=== PATIENT | male | born 1950 | race Caucasian/White ===

== ENCOUNTER → 2017-06-28 | Outpatient (CLI) | payer MEDICARE, OTHER ==
[~2017-06-28] MED LIST: ASPI81TA83; IBUP800T; PRAV10TA4; PRIL20CA; PROS5TAB; TERA10CA; TERA5CAP3; TRAM50TA2
[2017-06-28 09:51] LABS: BASO % 0.4 % (0.0-1.0); EOS # 0.2 10^3/uL (0.0-0.50); EOS % 2.7 % (0.0-3.0); IMMATURE GRANULOCYTE % 0.4 % (0-0); LYMPH # 1.5 10^3/uL (1.5-4.5); LYMPH % 19.4 % (24.0-44.0); MEAN CORPUSCULAR HEMOGLOBIN 30.6 pg (27.0-33.0); MEAN CORPUSCULAR VOLUME 92.7 fl (80.0-96.0); MONO # 0.6 10^3/uL (0.0-0.8); MONO % 7.4 % (0.0-5.0); NEUTROPHILS # 5.2 10^3/uL (1.8-7.7); NEUTROPHILS % 69.7 % (36.0-66.0); PLATELET COUNT, AUTOMATED 221 10^3/uL (150-450); RED CELL DISTRIBUTION WIDTH 13.2 % (11.5-14.5); WHITE BLOOD COUNT 7.5 10^3/uL (4.0-10.0)
[2017-06-28 10:26] LABS: ALBUMIN 3.2 GM/DL (3.2-5.2); ALBUMIN/GLOBULIN RATIO 0.86 (1.00-1.93); ALKALINE PHOSPHATASE 71 U/L (45-117); ALT/SGPT 20 U/L (12-78); ANION GAP 5 MEQ/L (8-16); AST/SGOT 11 U/L (7-37); BILIRUBIN,TOTAL 0.8 MG/DL (0.2-1.0); BLOOD UREA NITROGEN 16 MG/DL (7-18); CALCIUM LEVEL 8.5 MG/DL (8.8-10.2); CARBON DIOXIDE LEVEL 30 MEQ/L (21-32); CHLORIDE LEVEL 106 MEQ/L (98-107); CHOLESTEROL LEVEL 172 MG/DL (<200); CREATININE FOR GFR 1.01 MG/DL (0.70-1.30); FREE T4 0.99 NG/DL (0.76-1.46); GLOMERULAR FILTRATION RATE > 60.0 (>49); GLUCOSE, FASTING 87 MG/DL (80-110); POTASSIUM SERUM 4.9 MEQ/L (3.5-5.1); SODIUM LEVEL 141 MEQ/L (136-145); TOTAL PROTEIN 6.9 GM/DL (6.4-8.2); TRIGLYCERIDES LEVEL 42 MG/DL (<150)
[2017-06-30 10:43] LABS: VITAMIN B12 LEVEL 484 PG/ML (247-911)
[2017-06-30 10:44] LABS: FOLATE 7.3 NG/ML (>5.4)
== END ==
LOC: M LAB 08:54
PROVIDERS: ATTEND Nurse Practitioner Adult Health
DX: D36.11 Benign neoplasm of peripheral nerves and autonomic nervous system of face, head, and neck (principal); J44.1 Chronic obstructive pulmonary disease with (acute) exacerbation; Z79.899 Other long term (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; E53.8 Deficiency of other specified B group vitamins; N40.0 Benign prostatic hyperplasia without lower urinary tract symptoms; E78.00 Pure hypercholesterolemia, unspecified; T78.49XD Other allergy, subsequent encounter; E55.9 Vitamin D deficiency, unspecified

== ENCOUNTER 2018-04-19 11:03 | Emergency (ER) | payer OTHER, MEDICARE ==
[2018-04-19 11:56] LABS: BASO % 0.3 % (0.0-1.0); EOS # 0.1 10^3/uL (0.0-0.50); EOS % 1.8 % (0.0-3.0); HEMATOCRIT 43.5 % (42.0-52.0); HEMOGLOBIN 14.6 g/dl (13.5-17.5); IMMATURE GRANULOCYTE % 0.3 % (0-3.0); LYMPH # 1.4 10^3/uL (1.5-4.5); LYMPH % 20.5 % (24.0-44.0); MEAN CORPUSCULAR HGB CONC 33.6 g/dl (32.0-36.5); MEAN CORPUSCULAR VOLUME 92.4 fl (80.0-96.0); MONO # 0.6 10^3/uL (0.0-0.8); MONO % 8.8 % (0.0-5.0); NEUTROPHILS # 4.5 10^3/uL (1.8-7.7); NEUTROPHILS % 68.3 % (36.0-66.0); PLATELET COUNT, AUTOMATED 214 10^3/uL (150-450); RED BLOOD COUNT 4.71 10^6/uL (4.30-6.10); WHITE BLOOD COUNT 6.6 10^3/uL (4.0-10.0)
[2018-04-19] MEDS: NS 1,000 ML IV (12:00)
[2018-04-19] MEDS: PANTOPRAZOLE 40MG INJ (PROTONIX) (C9113) IV (12:00)
[2018-04-19 12:09] LABS: INR 1.17; PROTHROMBIN TIME 15.1 SECONDS (12.1-14.4)
[2018-04-19 12:25] LABS: ALBUMIN 3.3 GM/DL (3.2-5.2); ALBUMIN/GLOBULIN RATIO 0.97 (1.00-1.93); ALKALINE PHOSPHATASE 72 U/L (45-117); ALT/SGPT 23 U/L (12-78); ANION GAP 8 MEQ/L (8-16); AST/SGOT 17 U/L (7-37); BILIRUBIN,DIRECT 0.3 MG/DL (0.0-0.2); BILIRUBIN,TOTAL 0.9 MG/DL (0.2-1.0); BLOOD UREA NITROGEN 17 MG/DL (7-18); CARBON DIOXIDE LEVEL 28 MEQ/L (21-32); CHLORIDE LEVEL 107 MEQ/L (98-107); CPK CREATINE PHOSPHOKINASE 84 U/L (39-308); CREATININE FOR GFR 1.12 MG/DL (0.70-1.30); GLOMERULAR FILTRATION RATE > 60.0 (>49); GLUCOSE, FASTING 111 MG/DL (70-100); MB/CK RELATIVE INDEX 2.62 (< OR =4); POTASSIUM SERUM 4.1 MEQ/L (3.5-5.1); SODIUM LEVEL 143 MEQ/L (136-145); TOTAL PROTEIN 6.7 GM/DL (6.4-8.2); TROPONIN I < 0.02 NG/ML (< 0.10)
== END 2018-04-19 12:47 | disposition home or self-care (01) ==
LOC: M ED 11:03
DX: K92.2 Gastrointestinal hemorrhage, unspecified (principal); K92.1 Melena; R00.1 Bradycardia, unspecified; I10 Essential (primary) hypertension; E78.9 Disorder of lipoprotein metabolism, unspecified; N40.0 Benign prostatic hyperplasia without lower urinary tract symptoms; Q85.09 Other neurofibromatosis; Z79.899 Other long term (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; Z79.82 Long term (current) use of aspirin
CPT/HCPCS: C9113

== ENCOUNTER 2018-06-10 10:12 | Day surgery (SDC) | payer OTHER ==
[2018-06-10] MEDS: NS 1,000 ML IV (06:00)
[~2018-06-10 10:12] MED LIST changes: -ASPI81TA83; -IBUP800T; -PRAV10TA4; -PRIL20CA; +PROPOFOL 200 MG/20 ML VIAL As Ordered; -PROS5TAB; -TERA10CA; -TERA5CAP3; -TRAM50TA2
== END 2018-06-10 13:15 | disposition home or self-care (01) ==
LOC: M OPP 10:12
DX: Z86.010 Personal history of colon polyps (principal); K64.1 Second degree hemorrhoids; K57.30 Diverticulosis of large intestine without perforation or abscess without bleeding; D12.5 Benign neoplasm of sigmoid colon; D12.3 Benign neoplasm of transverse colon; D12.2 Benign neoplasm of ascending colon
CPT/HCPCS: 45380

== ENCOUNTER → 2020-08-02 | Outpatient (CLI) | payer OTHER ==
[~2020-08-02] MED LIST changes: +ASPI81TA83; +CYAN1000VL IM; +FLON1SPR; +IBUP800T; +PRAV10TA3 PO; +PRAV10TA4; +PRESCAP6 PO; +PRIL20CA; -PROPOFOL 200 MG/20 ML VIAL As Ordered; +PROS5TAB; +SYMB16INH INH; +TERA10CA; +TERA10CA3 PO; +TERA5CAP3; +TRAM50TA2; +VITA100067 PO
== END ==
LOC: M LABSMTC 10:42
PROVIDERS: ATTEND Pediatrics
DX: Z20.822 Contact with and (suspected) exposure to COVID-19 (principal)

== ENCOUNTER 2020-08-26 06:12 | Emergency (ER) | payer MEDICARE, OTHER ==
[~2020-08-26] VITALS: Ht 165.1 cm; Wt 92.7 kg
--- OUTSIDE RECORDS SUMMARY | 2020-08-26 06:18 | CCD ---
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 Role Phone Juani Schwartz ANP-BC Unavailable Unavailable EfrenJuanin ANP-BC Unavailable Unavailable Juani Schwartzn ANP-BC Unavailable Unavailable Juani Schwartzn ANP-BC Unavailable Unavailable EfrenJuani Alexia ANP-BC Unavailable Unavailable EfrenJuani Alexia ANP-BC Unavailable Unavailable Juani Schwartz Alexia ANP-BC Unavailable Unavailable Juani Schwartz Alexia ANP-BC Unavailable Unavailable Juani Schwartzn ANP-BC Unavailable Unavailable Juani Schwartz Alexia ANP-BC Unavailable Unavailable Juani Schwartz Alexia ANP-BC Unavailable Unavailable Juani Schwartzn ANP-BC Unavailable Unavailable Juani Schwartz Alexai ANP-BC Unavailable Unavailable Juani Schwartzn ANP-BC Unavailable Unavailable EfrenJuani Alexia ANP-BC Unavailable Unavailable Juani Schwartz Alexia ANP-BC Unavailable Unavailable EfrenJuani Alexia ANP-BC Unavailable Unavailable Juani Schwartz Alexia ANP-BC Unavailable Unavailable Juani Schwartz Alexia ANP-BC Unavailable Unavailable Juani Schwartz Alexia ANP-BC Unavailable Unavailable Juani Schwartz Alexia ANP-BC Unavailable Unavailable EfrenJuani Alexia ANP-BC Unavailable Unavailable EfrenJuani Alexia ANP-BC Unavailable Unavailable EfrenJuani Alexia ANP-BC Unavailable Unavailable EfrenJuani Alexia ANP-BC Unavailable Unavailable EfrenJuani Alexia ANP-BC Unavailable Unavailable Efren, Juani Alexia ANP-BC Unavailable Unavailable Efren, Juani Alexia ANP-BC Unavailable Unavailable Efren, Juani Alexia ANP-BC Unavailable Unavailable Efren, Juani Alexia ANP-BC Unavailable Unavailable Efren, Juani Alexia ANP-BC Unavailable Unavailable Efren, Juani Alexia ANP-BC Unavailable Unavailable Efren, Juani Alexia ANP-BC Unavailable Unavailable Efren, Juani Alexia ANP-BC Unavailable Unavailable Efren, Juani Alexia ANP-BC Unavailable Unavailable Efren, Juani Alexia ANP-BC Unavailable Unavailable Efren, Juani Alexia ANP-BC Unavailable Unavailable Efren, Juani Alexia ANP-BC Unavailable Unavailable Efren, Juani Alexia ANP-BC Unavailable Unavailable Efren, Juani Alexia ANP-BC Unavailable Unavailable Efren, Juani Alexia ANP-BC Unavailable Unavailable Efren, Juani Alexia ANP-BC Unavailable Unavailable Efren, Juani Alexia ANP-BC Unavailable Unavailable Efren, Juani Alexia ANP-BC Unavailable Unavailable Efren, Juani Alexia ANP-BC Unavailable Unavailable Efren, Juani Alexia ANP-BC Unavailable Unavailable Efren, Juani Alexia ANP-BC Unavailable Unavailable Efren, Juani Alexia ANP-BC Unavailable Unavailable Efren, Juani Alexia ANP-BC Unavailable Unavailable Efren, Juani Alexia ANP-BC Unavailable Unavailable Efren, Juani Alexia ANP-BC Unavailable Unavailable Efren, Juani Alexia ANP-BC Unavailable Unavailable Efren, Juani Alexia ANP-BC Unavailable Unavailable Efren, Juani Alexia ANP-BC Unavailable Unavailable Efren, Juani Alexia ANP-BC Unavailable Unavailable Efren, Juani Alexia ANP-BC Unavailable Unavailable Efren, Juani Alexia ANP-BC Unavailable Unavailable Efren, Juani Alexia ANP-BC Unavailable Unavailable Efren, Juani Alexia ANP-BC Unavailable Unavailable Efren, Junai Alexia ANP-BC Unavailable Unavailable Efren, Juani Alexia ANP-BC Unavailable Unavailable Efren, Juani Alexia ANP-BC Unavailable Unavailable Efren, Juani Alexia ANP-BC Unavailable Unavailable Efren, Juani Alexia ANP-BC Unavailable Unavailable Johanna De La Cruz MD Unavailable Unavailable Johanna De La Cruz MD Unavailable Unavailable Johanna De La Cruz MD Unavailable Unavailable Johanna De La Cruz MD Unavailable Unavailable Johanna De La Cruz MD Unavailable Unavailable Johanna De La Cruz MD Unavailable Unavailable Ali, Johanna MD Unavailable Unavailable Ali, Johanna MD Unavailable Unavailable Ali, Johanna MD Unavailable Unavailable Ali, Johanna MD Unavailable Unavailable Ali, Johanna MD Unavailable Unavailable Ali, Johanna MD Unavailable Unavailable Ali, Johanna MD Unavailable Unavailable Ali, Johanna MD Unavailable Unavailable Ali, Johanna MD Unavailable Unavailable Ali, Johanna MD Unavailable Unavailable Ali, Johanna MD Unavailable Unavailable Ali, Johanna MD Unavailable Unavailable Ali, Johanna MD Unavailable Unavailable Ali, Johanna MD Unavailable Unavailable Ali, Johanna MD Unavailable Unavailable Ali, Johanna MD Unavailable Unavailable Ali, Johanna MD Unavailable Unavailable Ali, Johanna MD Unavailable Unavailable Ali, Johanna MD Unavailable Unavailable Ali, Johanna MD Unavailable Unavailable Ali, Johanna MD Unavailable Unavailable Ali, Johanna MD Unavailable Unavailable Ali, Johanna MD Unavailable Unavailable Ali, Johanna MD Unavailable Unavailable Ali, Johanna MD Unavailable Unavailable Ali, Johanna MD Unavailable Unavailable Ali, Johanna MD Unavailable Unavailable Ali, Johanna MD Unavailable Unavailable Ali, Johanna MD Unavailable Unavailable Ali, Johanna MD Unavailable Unavailable Ali, Johanna MD Unavailable Unavailable Ali, Johanna MD Unavailable Unavailable Ali, Johnana MD Unavailable Unavailable Ali, Johanna MD Unavailable Unavailable Ali, Johanna MD Unavailable Unavailable Ali, Johanna MD Unavailable Unavailable Ali, Johanna MD Unavailable Unavailable Ali, Johanna MD Unavailable Unavailable Ali, Johanna MD Unavailable Unavailable Ali, Johanna MD Unavailable Unavailable Ali, Johanna MD Unavailable Unavailable Ali, Johanna MD Unavailable Unavailable Ali, Johanna MD Unavailable Unavailable Re-disclosure Warning The records that you are about to access may contain information from federally-assisted alcohol or drug abuse programs. If such information is present, then the following federally mandated warning applies: This information has been disclosed to you from records protected by federal confidentiality rules (42 CFR part 2). The federal rules prohibit you from making any further disclosure of this information unless further disclosure is expressly permitted by the written consent of the person to whom it pertains or as otherwise permitted by 42 CFR part 2. A general authorization for the release of medical or other information is NOT sufficient for this purpose. The Federal rules restrict any use of the information to criminally investigate or prosecute any alcohol or drug abuse patient.The records that you are about to access may contain highly sensitive health information, the redisclosure of which is protected by Article 27-F of the [place] State Public Health law. If you continue you may have access to information: Regarding HIV / AIDS; Provided by facilities licensed or operated by the [facility] Office of Mental Health; or Provided by the [facility] Office for People With Developmental Disabilities. If such information is present, then the following [facility] mandated warning applies: This information has been disclosed to you from confidential records which are protected by state law. State law prohibits you from making any further disclosure of this information without the specific written consent of the person to whom it pertains, or as otherwise permitted by law. Any unauthorized further disclosure in violation of state law may result in a fine or [place] health [facility] sentence or both. A general authorization for the release of medical or other information is NOT sufficient authorization for further disc losure. Family History Family Member Name Family Member Gender Family Member Status Date o f Status Description Data Source(s) Unknown Male Problem [facility] ([facility]) Unknown [facility] Encounters Encounter Providers Location Date Indications Data Source(s ) Outpatient Attender: Alexia MORALES 06/29 12:59:00 PM EST - 07/26/2020 12:59:00 PM [facility] Outpatient Attender: Alexia MROALES 03/29 02:43:00 PM EDT - 04/19/2020 02:43:00 PM EDT [facility] Office Visit Attender: Johanna De La Cruz MD Main office - [place] 04/06/2020 10:45:00 AM EDT [facility] ([facility]) Outpatient Attender: Alexia MORALES 12/28 01:42:00 PM EDT - 01/25/2020 01:42:00 PM EDT [facility] Outpatient Attender: Alexia MORALES 06/29 01:34:00 PM EST - 07/26/2019 01:34:00 PM [facility] Immunizations Vaccine Date Status Description Data Source(s) New in 2011. IIV4 04/19/2020 03:03:00 PM EDT completed [facility] ([facility]) Medications Medication Brand Name Start Date Product Form Dose Route Admi nistrative Instructions Pharmacy Instructions Status Indications Reaction Description Data Source(s) Potassium Chloride 10 MEQ Extended Release Oral Capsule POTA SSIUM CHLORIDE 07/27/2020 12:00:00 AM EST capsule, extended release 90 TAKE ONE CAPSULE BY MOUTH EVERY DAY TAKE ONE CAPSULE BY MOUTH EVERY DAY SOLD: 07/29/2020 [facility] 10 mEq 01/26/2020 12:00:00 AM EDT capsule, extended relea se 90 TAKE ONE CAPSULE BY MOUTH EVERY DAY TAKE ONE CAPSULE BY MOUTH EVERY DAY SOLD: 04/16/2020 [facility] 10 mEq 01/26/2020 12:00:00 AM EDT capsule, extended relea se 90 TAKE ONE CAPSULE BY MOUTH EVERY DAY TAKE ONE CAPSULE BY MOUTH EVERY DAY SOLD: 01/26/2020 [facility] Potassium Chloride 10 MEQ Extended Release Oral Capsule Pota ssium Chloride ER 01/25/2020 12:00:00 AM EDT ORAL active [facility] ([facility]) Insurance Providers Payer name Policy type / Coverage type Policy ID Covered libertarian ID Covered libertarian's relationship to alvarado Policy Alvarado Plan Information TODAYS OPTIONSDO NOT USE [id number] SP [id number] 'S ADMINISTRATION [id number] SP [id number] [place] MEDIC[place] HM [id number] [facility] Medicare Health Maintenance Organization (HMO) [id number] Self [id number] TODAYS [place] [id number] [place] [id number] TODAYS OPTION [id number] MEDICARE PART A [facility] [id number] 18 [id number] Todays Option Commercial [id number] Self [id number] Medicare Part A [place] Primary [id number] Self [id number] TODAYS OPTIONS [id number] SP [id number] Today's Options Medicare Commercial [id number] Self [id number] [facility] Commercial [id number] Self [id number] [facility] [id number] SP [id number] [facility] [id number] SP [id number] [facility] [id number] SP [id number] TODAYS OPTIONS/POLISH O [id number] S [id number] MEDICARE [id number] SP [id number] A O UNAVAILABLE UNAVAILA BLE [facility] O [id number] S [id number] SELF PAY ONLY [id number] SP [id number] [facility] [id number] SP [id number] [facility] [id number] [facility] [id number] SP [id number] Problems, Conditions, and Diagnoses Code Display Name Description Problem Type Effective Dates Data Source(s) 983576634 Benign connective tissue neoplasm Benign connect ming tissue neoplasm Problem 01/25/2020 12:00:00 AM EDT [facility] ([facility]) [id number] Taking medication Taking medication Problem 01/24 12:00:00 AM EDT [facility] ([facility]) Benign prostatic hyperplasia with lower urinary tract symptoms Benign prostatic hyperplasia with lower urinary tract symptoms Problem 01/25/2020 12:00:00 AM EDT [facility] ([facility]) [id number] Neurofibromatosis syndrome Neurofibromatosis syndrome Problem 01/25/2020 12:00:00 AM EDT [facility] ([facility]) [id number] Mixed hyperlipidemia Mixed hyperlipidemia Problem 01/25/2020 12:00:00 AM EDT [facility] ([facility]) [id number] Pure hypercholesterolemia Pure hypercholesterolemia Pr oblem 01/25/2020 12:00:00 AM EDT [facility] ([facility]) [id number] Essential hypertension Essential hypertension Problem 01/25/2020 12:00:00 AM EDT [facility] ([facility]) [id number] Other shelter (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 Diagnosis 07/26/2020 12:59:00 PM [facility] E559 Vitamin D deficiency, unspecified Vitamin D defi ciency, unspecified Diagnosis 07/26/2020 12:59:00 PM [facility] E876 Hypokalemia Hypokalemia Diagnosis 07/26/2020 12:59:00 PM [facility] N401 Benign prostatic hyperplasia with lower urinary tract symptoms Benign prostatic hyperplasia with lower urinary tract symptoms Diagnosis 07/26/2020 12:59:00 PM [facility] Q8500 Neurofibromatosis, unspecified Neurofibromatosis, unsp ecified Diagnosis 07/26/2020 12:59:00 PM [facility] E7800 Pure hypercholesterolemia, unspecified P ure hypercholesterolemia, unspecified Diagnosis 07/26/2020 12:59:00 PM [facility] I10 Essential (primary) hypertension Essential (primary) h ypertension Diagnosis 07/26/2020 12:59:00 PM [facility] Surgeries/Procedures Procedure Description Date Indications Data Source(s) Brief Emotional/Behav Assessment W/ Scoring Doc Per Standard Inst 01/25/2020 12:00:00 AM EDT [facility] Admin Patient Focused Health Risk Assessment Instrument 01/25/2020 12:00:00 AM EDT [facility] Results ID Date Data Source [id number] 08/02/2020 12:00:00 AM EST [facility] Name Value Range Interpretation Code Description Data Annamaria rce(s) Supporting Document(s) SARS-CoV-2 (COVID-19) RNA [Presence] in Respiratory specimen by PARMJIT with probe detection Positive for 2019-nCoV [facility] This lab was ordered by [facility] and reported by [employer]. Procedure Vital Signs ID Date Data Source UNK Name Value Range Interpretation Code Description Data Source(s) Body surface area Derived from formula 2.[address] [facility] ([facility]) Body mass index (BMI) [Ratio] 34.8 kg/m2 34.8 k g/m2 [facility] ([facility]) Body height 65 [in_i] 65 [in_i] [facility] ([facility]) 5'5" Body weight 94.[address] [facility] ([facility]) Body weight 209.00 [lb_av] 209.00 [lb_av] [facility] ([facility]) Oxygen saturation in Arterial blood by Pulse oximetry 99 % 99 % [facility] ([facility]) Respiratory rate 18 /min 18 /min [facility] ( [facility]) Body temperature 97.2 [degF] 97.2 [degF] [facility] ([facility]) Heart rate 64 /min 64 /min [facility] ([facility]) Diastolic blood pressure 70 mm[Hg] 70 mm[Hg] [facility] ([facility]) Systolic blood pressure 118 mm[Hg] 118 mm[Hg] M EDENT ([facility]) Body surface area Derived from formula 2.[address] [facility] ([facility]) Body mass index (BMI) [Ratio] 35.6 kg/m2 35.6 k g/m2 [facility] ([facility]) Body height 65 [in_i] 65 [in_i] [facility] ([facility]) 5'5" Body weight 97.127 kg 97.127 kg [facility] ([facility]) Body weight 214.12 [lb_av] 214.12 [lb_av] [facility] ([facility]) Oxygen saturation in Arterial blood by Pulse oximetry 96 % 96 % [facility] ([facility]) Respiratory rate 18 /min 18 /min [facility] ( [facility]) Body temperature 98.4 [degF] 98.4 [degF] [facility] ([facility]) Heart rate 60 /min 60 /min [facility] ([facility]) Diastolic blood pressure 74 mm[Hg] 74 mm[Hg] [facility] ([facility]) Systolic blood pressure 120 mm[Hg] 120 mm[Hg] [facility] Body surface area 2.[address] [facility] ([facility]) Body surface area 2.[address] [facility] ([facility]) Body surface area Derived from formula 2.[address] [facility] ([facility]) Body mass index (BMI) [Ratio] 34.5 kg/m2 34.5 k g/m2 [facility] ([facility]) Body height 65 [in_i] 65 [in_i] [facility] 5'5" Body weight 94.122 kg 94.122 kg [facility] ([facility]) Body weight 207.50 [lb_av] 207.50 [lb_av] [facility] ([facility]) Oxygen saturation in Arterial blood by Pulse oximetry 97 % 97 % [facility] Respiratory rate 18 /min 18 /min [facility] Body temperature 98.1 [degF] 98.1 [degF] [facility] ([facility]) Heart rate 72 /min 72 /min [facility] Diastolic blood pressure 80 mm[Hg] 80 mm[Hg] [facility] Systolic blood pressure 124 mm[Hg] 124 mm[Hg] [facility]
--- OUTSIDE RECORDS SUMMARY | 2020-08-26 06:18 | CCD | Continuity of Care Document ---
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 Name Role Phone Alexia Schwartz AUTM [phone] Problems Active Problems Provider Date Essential hypertension ANDREW Parks PNP Onset: 2019 Pure hypercholesterolemia ANDREW Parks PNP Onset: Mixed hyperlipidemia ANDREW Parks PNP Onset: 01/25/20 20 Neurofibromatosis syndrome ANDREW Parks PNP Onset: Benign prostatic hyperplasia with lower urinary tract symptoms AMI Parks PNP Onset: 01/25/2020 Taking medication ANDREW Parks PNP Onset: 0 Benign connective tissue neoplasm ANDREW Parks PNP On set: 01/25/2020 Social History Type Date Description Comments Sex Unknown Tobacco Use Start: Unknown End: Quit Tobacco Use Start: Unknown Never Smoked Cigars Tobacco Use Start: Unknown Never Smoked A Pipe Tobacco Use Start: Unknown Never Used Smokeless Tobacco ETOH Use Occasionally consumes alcohol Tobacco Use Start: Unknown End: Unknown Patient is a former smoker Recreational Drug Use Denies Drug Use Allergies, Adverse Reactions, Alerts Description No Known Drug Allergies Medications Active Medications SIG Qnty Indications Ordering Provide r Date Potassium Chloride ER 10Meq Capsul es ER 1 by mouth every day 90caps ANDREW Parks PNP 01/24 Proair HFA 108(90Base) mcg/Act Aer osol 2 inhalations every 4 to 6 hours as needed 17gm ANDREW Matos PNP 07/06/2018 Symbicort 160-4.5mcg/Act Aerosol 2 puff twice a day 30.6gm ANDREW Parks, PNP 07/06/20 18 Syringe/Luer Lock/3ML/40XR8-6/2" 22G X 1-1/2" 3 ML Misc For 1 x per month injection of B12 3units ANDREW Parks, PNP 07/06/2018 Pravastatin Sodium 20mg Tablets 1 tab by mouth at bedtime Unknown Vitamin D3 1000Unit Capsules 1 by mouth every day Unknown Cyanocobalamin 1 injection every week Unknown Fluticasone Propionate 50mcg/Act Suspension 2 sprays each nostril daily Unknown Terazosin HCL 10mg Capsules 1 tab by mouth every day Unknown Immunizations CPT Code Status Date Vaccine Lot # [id number] Given 04/19/2020 Influenza (>= 6 Months) P.F. Vaccine [id number] Vital Signs Date Vital Result Comment 07/26/2020 1:05pm BP Systolic 118 mmHg BP Diastolic 70 mmHg Heart Rate 64 /min Body Temperature 97.2 F Respiratory Rate 18 /min O2 % BldC Oximetry 99 % Weight 209.00 lb Weight 94.802 kg Height 65 inches 5'5" BMI (Body Mass Index) 34.8 kg/m2 BSA (Body Surface Area) 2.02 m2 01/25/2020 1:56pm BP Systolic 120 mmHg BP Diastolic 74 mmHg Heart Rate 60 /min Body Temperature 98.4 F Respiratory Rate 18 /min O2 % BldC Oximetry 96 % Weight 214.12 lb Weight 97.127 kg Height 65 inches 5'5" BMI (Body Mass Index) 35.6 kg/m2 BSA (Body Surface Area) 2.04 m2 Results Description No Information Available Procedures Description No Information Available Medical Devices Description No Information Available Encounters Description No Information Available Assessments Date Code Description Provider 07/26/2020 I10 Essential (primary) hypertension ANDREW Parks, PNP 07/26/2020 E78.00 Pure hypercholesterolemia, unspe cified ANDREW Parks, PNP 07/26/2020 Q85.00 Neurofibromatosis, unspecified D ANDREW Ochoa, PNP 07/26/2020 N40.1 Benign prostatic hyperplasia wit h lower urinary tract sympto ANDREW Parks, PNP 07/26/2020 E87.6 Hypokalemia AMI Parks, PNP 07/26/2020 E55.9 Vitamin D deficiency, unspecifie d ANDREW Parks, PNP 07/26/2020 Z79.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 Today, his BP is normal at 118/70.The patient was advised to continue with the current line of therapies.He will benefit from maintaining a low-sodium diet.We will continue to monitor. * E78.00 Pure hypercholesterolemia, unspecified* Comments:* He is due for his labs. Routine labs ordered.He will continue with his current regimen.He was encouraged to maintain a low cholesterol diet and a regular exercise regimen.We will continue to monitor. * Follow up:* FU 6 months, fasting labs prior * Q85.00 Neurofibromatosis, unspecified* Comments:* Condition was reviewed in detail, we will continue to monitor the patient. * N40.1 Benign prostatic hyperplasia with lower urinary tract sympto* Comments: * Advised [facility] We will continue to monitor. * E87.6 Hypokalemia* Comments:* He is due for his labs. Routine labs ordered.To continue Potassium Chloride as directed.We will continue to monitor. * E55.9 Vitamin D deficiency, unspecified* Comments:* To continue with his daily supplements.We will continue to monitor through periodic blood work. * Follow up:* FU in 6 months, fasting labs first. 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 We will continue to monitor through periodic blood work. * Follow up:* FU in 6 months, fasting labs first. Functional Status Description No Information Available Mental Status Description No Information Available Referrals Description No Information Available
[2020-08-26] MEDS ORDERED: POTA10CA32 (06:24)
--- OUTSIDE RECORDS SUMMARY | 2020-08-26 07:18 | CCD ---
Author Author [facility] Organization [facility] Address Unknown Phone Unavailable Care Team Providers Care Mobile Home Technician Name Role Phone Juani Schwartz ANP-BC Unavailable Unavailable EfrenJuanin ANP-BC Unavailable Unavailable Juani Schwartzn ANP-BC Unavailable Unavailable Juani Schwartzn ANP-BC Unavailable Unavailable EfrenJuani Alexia ANP-BC Unavailable Unavailable EfrenJuani Alexia ANP-BC Unavailable Unavailable Juani Schwartz Alexia ANP-BC Unavailable Unavailable Juani Schwartz Alexia ANP-BC Unavailable Unavailable Juani Schwartzn ANP-BC Unavailable Unavailable Juani Schwartz Alexia ANP-BC Unavailable Unavailable Juani Schwartz Alexia ANP-BC Unavailable Unavailable Juani Schwatrzn ANP-BC Unavailable Unavailable Juani Schwartz Alexia ANP-BC [...] is protected by Article 27-F of the [place] State Public Health law. If you continue you may have access to information: Regarding HIV / AIDS; Provided by facilities licensed or operated by the [facility] Office of Mental Health; or Provided by the [facility] Office for People With Developmental Disabilities. If such information is present, then the following [facility] mandated warning applies: This information has been [...] law may result in a fine or care home sentence or both. A general authorization for the release of medical or other information is NOT sufficient authorization for further disc losure. Family History Family Member Name Family Member Gender Family Member Status Date o f Status Description Data Source(s) Unknown Male Problem [facility] ([facility]) Unknown [facility] Encounters Encounter Providers Location Date Indications Data Source(s ) Outpatient Attender: Alexia MORALES [birth year]/29 12:59:00 PM EST - 07/26/2020 12:59:[address] [facility] Outpatient Attender: Alexia MORALES 03/29 02:43:00 PM EDT - 04/19/2020 02:43:00 PM EDT [facility] Office Visit Attender: Johanna De La Cruz MD Main office - [place] 04/06/2020 10:45:00 AM EDT [facility] ([facility]) Outpatient Attender: Alexia MORALES 12/28 01:42:00 PM EDT - 01/25/2020 01:42:00 PM EDT [facility] Outpatient Attender: Alexia MORALES 06/29 01:34:00 PM EST - 07/26/2019 01:34:[address] [facility] Immunizations Vaccine Date Status Description Data Source(s) New in 2011. IIV4 04/19/2020 03:03:00 PM EDT completed MED[facility] ([facility]) Medications Medication Brand Name Start Date Product [...] 01/25/2020 12:00:00 AM EDT ORAL active MEDENT ([facility]) Insurance Providers Payer name Policy type / Coverage type Policy ID Covered libertarian ID Covered libertarian's relationship to alvarado Policy Alvarado Plan Information MEDICARE BLUE PPO 306 [id number] SP [id number] 'S ADMINISTRATION [id number] SP [id number] TODAYS OPTIONSDO NOT USE [id number] SP [id number] [employer] MEDICARE HM [id number] 18 [id number] [employer] Medicare Health Maintenance Organization (HMO) [id number] Self [id number] TODAYS OPTIONS [id number] SP [id number] TODAYS OPTION [id number] 18 [id number] MEDICARE PART A [facility] [id number] 18 [id number] Todays Option Commercial [id number] Self [id number] Medicare Part A [place] Medicare Primary [id number] Self [id number] TODAYS OPTIONS [id number] SP [id number] Today's Options Medicare Commercial [id number] Self [id number] [facility] Commercial [id number] Self [id number] [facility] [id number] SP [id number] [facility] [id number] SP [id number] [facility] [id number] SP [id number] TODAYS OPTIONS/LIBERIAN O [id number] S [id number] MEDICARE [id number] SP [id number] A O UNAVAILABLE UNAVAILA BLE [facility] O [id number] S [id number] SELF PAY ONLY [id number] SP [id number] [facility] CARE [id number] SP [id number] [facility] [id number] S [id number] [facility] [id number] SP [id number] Problems, Conditions, and Diagnoses Code Display Name Description Problem Type Effective Dates Data Source(s) 076155886 Benign connective tissue neoplasm Benign connect ming tissue neoplasm Problem 01/25/2020 12:00:00 AM EDT [facility] ([facility]) [id number] Taking medication Taking medication Problem 01/24 12:00:00 AM EDT [facility] ([facility]) Benign prostatic hyperplasia with lower urinary tract symptoms Benign prostatic hyperplasia with lower urinary tract symptoms Problem 01/25/2020 12:00:00 AM EDT MED[facility] ([facility]) [id number] Neurofibromatosis syndrome Neurofibromatosis syndrome Problem 01/25/2020 12:00:00 AM EDT MED[facility] ([facility]) [id number] Mixed hyperlipidemia Mixed hyperlipidemia Problem 01/25/2020 12:00:00 AM EDT [facility] ([facility]) [id number] Pure hypercholesterolemia Pure hypercholesterolemia Pr oblem 01/25/2020 12:00:00 AM EDT MED[facility] ([facility]) [id number] Essential hypertension Essential hypertension Problem 01/25/2020 12:00:00 AM EDT MED[facility] ([facility]) [id number] Other mcfp (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 O ther mcfp (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 Diagnosis 07/26/2020 12:59:[address] [facility] E559 Vitamin D deficiency, unspecified Vitamin D defi ciency, unspecified Diagnosis 07/26/2020 12:59:[address] [facility] E876 Hypokalemia Hypokalemia Diagnosis 07/26/2020 12:59:[address] [facility] N401 Benign prostatic hyperplasia with lower urinary tract symptoms Benign prostatic hyperplasia with lower urinary tract symptoms Diagnosis 07/26/2020 12:59:[address] [facility] Q8500 Neurofibromatosis, unspecified Neurofibromatosis, unsp ecified Diagnosis 07/26/2020 12:59:[address] [facility] E7800 Pure hypercholesterolemia, unspecified P ure hypercholesterolemia, unspecified Diagnosis 07/26/2020 12:59:[address] [facility] I10 Essential (primary) hypertension Essential (primary) h ypertension Diagnosis 07/26/2020 12:59:[address] [facility] Surgeries/Procedures Procedure Description Date Indications Data Source(s) Brief Emotional/Behav Assessment W/ Scoring Doc Per Standard Inst 01/25/2020 12:00:00 AM EDT [facility] ([facility]) Admin Patient Focused Health Risk Assessment Instrument 01/25/2020 12:00:00 AM EDT [facility] ([facility]) Results ID Date Data Source [id number] 08/02/2020 12:00:00 AM EST [facility] Name Value Range Interpretation Code Description Data Annamaria rce(s) Supporting Document(s) SARS-CoV-2 (COVID-19) RNA [Presence] in Respiratory specimen by PARMJIT with probe detection Positive for 2019-nCoV [facility] This lab was ordered by [facility] and reported by [employer]. Procedure Vital Signs ID Date Data Source UNK Name Value Range Interpretation Code Description Data Source(s) Body surface area Derived from formula 2.02 m2 2.[address] [facility] ([facility]) Body mass index (BMI) [Ratio] 34.8 kg/m2 34.8 k g/m2 [facility] ([facility]) Body height 65 [in_i] 65 [in_i] [facility] ([facility]) 5'5" Body weight 94.802 kg 94.[address] [facility] ([facility]) Body weight 209.00 [lb_av] 209.00 [lb_av] MEDEN T ([facility]) Oxygen saturation in Arterial blood by Pulse oximetry 99 % 99 % [facility] ([facility]) Respiratory rate 18 /min 18 /min [facility] ( [facility]) Body temperature 97.2 [degF] 97.2 [degF] [facility] ([facility]) Heart rate 64 /min 64 /min [facility] ([facility]) Diastolic blood pressure 70 mm[Hg] 70 mm[Hg] [facility] ([facility]) Systolic blood pressure 118 mm[Hg] 118 mm[Hg] M [facility] ([facility]) Body surface area Derived from formula 2.04 m2 2.[address] [facility] ([facility]) Body mass index (BMI) [Ratio] 35.6 kg/m2 35.6 k g/m2 [facility] ([facility]) Body height 65 [in_i] 65 [in_i] [facility] ([facility]) 5'5" Body weight 97.127 kg 97.[address] [facility] ([facility]) Body weight 214.12 [lb_av] 214.12 [lb_av] MED[facility] T ([facility]) Oxygen saturation in Arterial blood by Pulse oximetry 96 % 96 % [facility] ([facility]) Respiratory rate 18 /min 18 /min [facility] ( [facility]) Body temperature 98.4 [degF] 98.4 [degF] [facility] ([facility]) Heart rate 60 /min 60 /min [facility] ([facility]) Diastolic blood pressure 74 mm[Hg] 74 mm[Hg] [facility] ([facility]) Systolic blood pressure 120 mm[Hg] 120 mm[Hg] M [facility] ([facility]) Body surface area 2.04 m2 2.[address] [facility] ([facility]) Body surface area 2.01 m2 2.[address] [facility] ([facility]) Body surface area Derived from formula 2.01 m2 2.[address] [facility] ([facility]) Body mass index (BMI) [Ratio] 34.5 kg/m2 34.5 k g/m2 [facility] ([facility]) Body height 65 [in_i] 65 [in_i] [facility] ([facility]) 5'5" Body weight 94.122 kg 94.[address] [facility] ([facility]) Body weight 207.50 [lb_av] 207.50 [lb_av] [facility] T ([facility]) Oxygen saturation in Arterial blood by Pulse oximetry 97 % 97 % [facility] ([facility]) Respiratory rate 18 /min 18 /min [facility] ( [facility]) Body temperature 98.1 [degF] 98.1 [degF] [facility] ([facility]) Heart rate 72 /min 72 /min [facility] ([facility]) Diastolic blood pressure 80 mm[Hg] 80 mm[Hg] [facility] ([facility]) Systolic blood pressure 124 mm[Hg] 124 mm[Hg] M [facility] ([facility])
[2020-08-26] MEDS ORDERED: LIDOCAINE 2% 5ML JELLY UROJET TOP ONE (07:45)
[2020-08-26 08:24] VITALS: BP 133/63
== END 2020-08-26 08:35 | disposition home or self-care (01) ==
LOC: M ED 06:12
DX: N40.1 Benign prostatic hyperplasia with lower urinary tract symptoms (principal); E78.5 Hyperlipidemia, unspecified; Z87.448 Personal history of other diseases of urinary system; J44.9 Chronic obstructive pulmonary disease, unspecified; Z87.891 Personal history of nicotine dependence; Z79.899 Other long term (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

== ENCOUNTER 2020-08-26 21:11 | Emergency (ER) | payer MEDICARE, OTHER ==
[~2020-08-26] VITALS: Ht 165.1 cm; Wt 92.7 kg
[~2020-08-26 21:11] MED LIST changes: +POTA10CA32
--- OUTSIDE RECORDS SUMMARY | 2020-08-26 21:19 | CCD ---
Author Author [facility] Organization [facility] Address Unknown Phone Unavailable Care Team Providers Care Trim Machine Adjuster Name Role Phone Juani Schwartz ANP-BC Unavailable [...] Juani Schwartz Alexia ANP-BC Unavailable Unavailable EfrenJuani Alexai ANP-BC Unavailable Unavailable EfrenJuani Alexia ANP-BC Unavailable [...] is protected by Article 27-F of the [place] State Public Health law. If you continue you may have access to information: Regarding HIV / AIDS; Provided by facilities licensed or operated by the [facility] Office of Mental Health; or Provided by the [facility] Office for People With Developmental Disabilities. If such information is present, then the following [facility] mandated warning applies: This information has [...] Description Data Source(s) Unknown Male Problem [facility] ([facility]) Unknown Male Problem [facility] Encounters Encounter Providers Location Date Indications Data Source(s ) Outpatient Attender: Alexia MORALES 06/29 12:59:00 PM EST - 07/26/2020 12:59:00 PM [facility] Outpatient Attender: Alexia MORALES 03/29 02:43:00 PM EDT - 04/19/2020 02:43:[address] [facility] Office Visit Attender: Johanna De La Cruz MD Main office - [place] 04/06/2020 10:45:00 AM EDT [facility] ([facility]) Outpatient Attender: Alexia MORALES 12/28 01:42:00 PM EDT - 01/25/2020 01:42:[address] [facility] Outpatient Attender: Alexia MORALES 06/29 01:34:00 PM EST - 07/26/2019 01:34:00 PM [facility] Immunizations Vaccine Date Status Description Data Source(s) New in 2011. IIV4 04/19/2020 03:03:00 PM EDT completed [facility] ([facility]) Medications Medication Brand Name Start Date [...] 01/25/2020 12:00:00 AM EDT ORAL active MED[facility] ([facility]) Insurance Providers Payer name Policy type / Coverage type Policy ID Covered constitution party ID Covered constitution party's relationship to alvarado Policy Alvarado Plan Information MEDICARE BLUE PPO 306 [id number] SP [id number] 'S ADMINISTRATION [id number] SP [id number] MEDICARE BLUE PPO 306 [id number] SP [id number] TODAYS OPTIONSDO NOT USE [id number] SP [id number] [employer] MEDICARE HM [id number] [facility] Medicare Health Maintenance Organization (HMO) [id number] Self [id number] TODAYS OPTIONS [id number] SP [id number] TODAYS OPTION [id number] 18 [id number] MEDICARE PART A [facility] [id number] 18 [id number] Todays Option Commercial [id number] Self [id number] Medicare Part A [place] Medicare Primary [id number] Self [id number] TODAYS OPTIONS [id number] SP [id number] Today's Options Medicare Commercial [id number] Self [id number] [facility] Commercial [id number] Self [id number] [facility] [id number] SP [id number] [facility] [id number] SP [id number] [facility] [id number] SP [id number] TODAYS OPTIONS/BELARUSIAN O [id number] S [id number] MEDICARE [id number] SP [id number] A O UNAVAILABLE UNAVAILA BLE [facility] O [id number] S [id number] SELF PAY ONLY [id number] SP [id number] [facility] [id number] SP [id number] [facility] P [id number] S [id number] [facility] PH [id number] SP [id number] Problems, Conditions, and Diagnoses Code Display Name Description Problem Type Effective Dates Data Source(s) 668702139 Benign connective tissue neoplasm Benign connect ming tissue neoplasm Problem 01/25/2020 12:00:00 AM EDT MED[facility] ([facility]) [id number] Taking medication Taking medication Problem 01/24 12:00:00 AM EDT [facility] ([facility]) Benign prostatic hyperplasia with lower urinary tract symptoms Benign prostatic hyperplasia with lower urinary tract symptoms Problem 01/25/2020 12:00:00 AM EDT [facility] ([facility]) 20206022 Neurofibromatosis syndrome Neurofibromatosis syndrome Problem 01/25/2020 12:00:00 AM EDT [facility] ([facility]) 951185817 Mixed hyperlipidemia Mixed hyperlipidemia Problem 01/25/2020 12:00:00 AM EDT [facility] ([facility]) 549026304 Pure hypercholesterolemia Pure hypercholesterolemia Pr oblem 01/25/2020 12:00:00 AM EDT [facility] ([facility]) 71712925 Essential hypertension Essential hypertension Problem 01/25/2020 12:00:00 AM EDT [facility] ([facility]) U63624 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 termite treater helper (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 Diagnosis 07/26/2020 12:59:00 PM [facility] E559 Vitamin D deficiency, unspecified Vitamin D defi ciency, unspecified Diagnosis 07/26/2020 12:59:00 PM [facility] E876 Hypokalemia Hypokalemia Diagnosis 07/26/2020 12:59:00 PM [facility] N401 Benign prostatic hyperplasia with lower urinary tract symptoms Benign prostatic hyperplasia with lower urinary tract symptoms Diagnosis 07/26/2020 12:59:00 PM [facility] Q8500 Neurofibromatosis, unspecified Neurofibromatosis, unsp ecified Diagnosis 07/26/2020 12:59:00 PM [facility] E7800 Pure hypercholesterolemia, unspecified P ure hypercholesterolemia, unspecified Diagnosis 07/26/2020 12:59:00 PM [facility] I10 Essential (primary) hypertension Essential (primary) h ypertension Diagnosis 07/26/2020 12:59:00 PM [facility] Surgeries/Procedures Procedure Description Date Indications Data Source(s) Brief Emotional/Behav Assessment W/ Scoring Doc Per Standard Inst 01/25/2020 12:00:00 AM [facility] Admin Patient Focused Health Risk Assessment Instrument 01/25/2020 12:00:00 AM EDT [facility] Results ID Date Data Source [id number] 08/02/2020 12:00:00 AM EST [facility] Name Value Range Interpretation Code Description Data Annamaria rce(s) Supporting Document(s) SARS-CoV-2 (COVID-19) RNA [Presence] in Respiratory specimen by PARMJIT with probe detection Positive for 2019-nCoV [facility] This lab was ordered by [facility] and reported by [employer] Procedure Vital Signs ID Date Data Source UNK Name Value Range Interpretation Code Description Data Source(s) Body surface area Derived from formula 2.02 m2 2.02 m2 [facility] ([facility]) Body mass index (BMI) [Ratio] 34.8 kg/m2 34.8 k g/m2 [facility] ([facility]) Body height 65 [in_i] 65 [in_i] [facility] ([facility]) 5'5" Body weight 94.802 kg 94.802 kg [facility] ([facility]) Body weight 209.00 [lb_av] 209.00 [lb_av] [facility] T ([facility]) Oxygen saturation in Arterial blood by Pulse oximetry 99 % 99 % [facility] ([facility]) Respiratory rate 18 /min 18 /min [facility] ( [facility]) Body temperature 97.2 [degF] 97.2 [degF] [facility] ([facility]) Heart rate 64 /min 64 /min [facility] ([facility]) Diastolic blood pressure 70 mm[Hg] 70 mm[Hg] [facility] ([facility]) Systolic blood pressure 118 mm[Hg] 118 mm[Hg] M COUNTS INCLUDE 234 [facility] AT [facility] ([facility]) Body surface area Derived from formula 2.04 m2 2.04 m2 [facility] ([facility]) Body mass index (BMI) [Ratio] 35.6 kg/m2 35.6 k g/m2 [facility] ([facility]) Body height 65 [in_i] 65 [in_i] [facility] 5'5" Body weight 97.127 kg 97.127 kg [facility] Body weight 214.12 [lb_av] 214.12 [lb_av] [facility] T ([facility]) Oxygen saturation in Arterial blood by Pulse oximetry 96 % 96 % [facility] ([facility]) Respiratory rate 18 /min 18 /min [facility] ( [facility]) Body temperature 98.4 [degF] 98.4 [degF] [facility] ([facility]) Heart rate 60 /min 60 /min [facility] ([facility]) Diastolic blood pressure 74 mm[Hg] 74 mm[Hg] [facility] ([facility]) Systolic blood pressure 120 mm[Hg] 120 mm[Hg] [facility] ([facility]) Body surface area 2.04 m2 2.04 m2 [facility] ([facility]) Body surface area 2.01 m2 2.01 m2 [facility] ([facility]) Body surface area Derived from formula 2.01 m2 2.01 m2 [facility] ([facility]) Body mass index (BMI) [Ratio] 34.5 kg/m2 34.5 k g/m2 [facility] ([facility]) Body height 65 [in_i] 65 [in_i] [facility] ([facility]) 5'5" Body weight 94.122 kg 94.122 kg [facility] ([facility]) Body weight 207.50 [lb_av] 207.50 [lb_av] MEDEN T ([facility]) Oxygen saturation in Arterial blood by Pulse oximetry 97 % 97 % [facility] ([facility]) Respiratory rate 18 /min 18 /min [facility] ( [facility]) Body temperature 98.1 [degF] 98.1 [degF] [facility] ([facility]) Heart rate 72 /min 72 /min [facility] ([facility]) Diastolic blood pressure 80 mm[Hg] 80 mm[Hg] [facility] ([facility]) Systolic blood pressure 124 mm[Hg] 124 mm[Hg] M COUNTS [facility] ([facility])
--- OUTSIDE RECORDS SUMMARY | 2020-08-26 22:16 | CCD ---
Author Author [facility] Organization [facility] Address Unknown Phone Unavailable Care Team Providers Care Post Acute Care Registered Nurse Name Role Phone Juani Schwartz ANP-BC Unavailable Unavailable EfrenJuanin ANP-BC Unavailable Unavailable Juani Schwartzn ANP-BC Unavailable Unavailable Juani Schwartzn ANP-BC Unavailable Unavailable EfrenJuani Alexia ANP-BC Unavailable Unavailable EfrenJuani Alexia ANP-BC Unavailable Unavailable Juani Schwartz Alexia ANP-BC Unavailable Unavailable Juani Schwartz Alexia ANP-BC Unavailable Unavailable Jauni Schwartzn ANP-BC Unavailable Unavailable Juani Schwartz Alexia [...] is protected by Article 27-F of the [place] Public Health law. If you continue you may have access to information: Regarding HIV / AIDS; Provided by facilities licensed or operated by the [facility] Office of Mental Health; or Provided by the [facility] Office for People With Developmental Disabilities. If such information is present, then the following [facility] mandated warning applies: This information has [...] law may result in a fine or fci sentence or both. A general authorization for the release of medical or other information is NOT sufficient authorization for further disc losure. Family History Family Member Name Family Member Gender Family Member Status Date o f Status Description Data Source(s) Unknown Male Problem [facility] ([facility]) Unknown [facility] Encounters Encounter Providers Location Date Indications Data Source(s ) Outpatient Attender: Alexia MORALES [birth year]/29 12:59:00 PM EST - 07/26/2020 12:59:00 PM [facility] Outpatient Attender: Alexia MORALES 03/29 02:43:00 PM EDT - 04/19/2020 02:43:00 PM EDT [facility] Office Visit Attender: Johanna De La Cruz MD Main office - [place] 04/06/2020 10:45:00 AM EDT [facility] ([facility] [place] [facility]) Outpatient Attender: Alexia MORALES 12/28 01:42:00 PM EDT - 01/25/2020 01:42:00 PM EDT [facility] Outpatient Attender: Alexia MORALES 06/29 01:34:00 PM EST - 07/26/2019 01:34:00 PM [facility] Immunizations Vaccine Date Status Description Data Source(s) New in 2011. IIV4 04/19/2020 03:03:00 PM EDT completed [facility] ([facility]) Medications Medication Brand Name Start Date Product [...] 01/25/2020 12:00:00 AM EDT ORAL active [facility] ([facility]) Insurance Providers Payer name Policy type / Coverage type Policy ID Covered republican ID Covered republican's relationship to alvarado Policy [place] Plan Information MEDICARE BLUE PPO 306 [id number] SP [id number] ADMINISTRATION [id number] SP [id number] MEDICARE BLUE PPO 306 [id number] SP [id number] TODAYS OPTIONSDO NOT USE [id number] SP [id number] EXCELL[place] MEDICARE HM [id number] 18 [id number] [facility] Health Maintenance Organization (HMO) [id number] Self [id number] TODAYS OPTIONS [id number] SP [id number] TODAYS OPTION [id number] 18 [id number] MEDICARE PART A [facility] [id number] 18 [id number] Todays Option Commercial [id number] Self [id number] Medicare Part A [place] Medicare Primary [id number] Self [id number] TODAYS OPTIONS [id number] SP [id number] Today's Options Medicare Commercial [id number] Self [id number] [facility] Commercial [id number] Self [id number] [facility] [id number] SP [id number] [facility] [id number] SP [id number] [facility] [id number] SP [id number] TODAYS OPTIONS/STATELESS O [id number] S [id number] MEDICARE [id number] SP [id number] A O UNAVAILABLE UNAVAILA BLE [facility] O [id number] S [id number] SELF PAY ONLY [id number] SP [id number] [facility] [id number] SP [id number] [facility] P [id number] S [id number] [facility] [place] [id number] SP [id number] Problems, Conditions, and Diagnoses Code Display Name Description Problem Type Effective Dates Data Source(s) 480817184 Benign connective tissue neoplasm Benign connect ming tissue neoplasm Problem 01/25/2020 12:00:00 AM EDT [facility] ([facility]) [id number] Taking medication Taking medication Problem 01/24 12:00:00 AM EDT [facility] ([facility]) Benign prostatic hyperplasia with lower urinary tract symptoms Benign prostatic hyperplasia with lower urinary tract symptoms Problem 01/25/2020 12:00:00 AM EDT [facility] ([facility]) [id number] Neurofibromatosis syndrome Neurofibromatosis syndrome Problem 01/25/2020 12:00:00 AM EDT [facility] ([facility]) [id number] Mixed hyperlipidemia Mixed hyperlipidemia Problem 01/25/2020 12:00:00 AM EDT [facility] ([facility]) [id number] Pure hypercholesterolemia Pure hypercholesterolemia Pr oblem 01/25/2020 12:00:00 AM EDT [facility] ([facility]) [id number] Essential hypertension Essential hypertension Problem 01/25/2020 12:00:00 AM EDT [facility] ([facility]) [id number] Other long term acute care registered nurse (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 O ther long term acute care registered nurse (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 Diagnosis 07/26/2020 12:59:00 PM [facility] E559 Vitamin D deficiency, unspecified Vitamin D defi ciency, unspecified Diagnosis 07/26/2020 12:59:00 PM [facility] E876 Hypokalemia Hypokalemia Diagnosis 07/26/2020 12:59:00 PM [facility] N401 Benign prostatic hyperplasia with lower urinary tract symptoms Benign prostatic hyperplasia with lower urinary tract symptoms Diagnosis 07/26/2020 12:59:00 PM [facility] Q8500 Neurofibromatosis, unspecified Neurofibromatosis, unsp ecified Diagnosis 07/26/2020 12:59:00 PM [facility] E7800 Pure hypercholesterolemia, unspecified P ure hypercholesterolemia, unspecified Diagnosis 07/26/2020 12:59:00 PM [facility] I10 Essential (primary) hypertension Essential (primary) h ypertension Diagnosis 07/26/2020 12:59:00 PM [facility] Surgeries/Procedures Procedure Description Date Indications Data Source(s) Brief Emotional/Behav Assessment W/ Scoring Doc Per Standard Inst 01/25/2020 12:00:00 AM EDT [facility]) Admin Patient Focused Health Risk Assessment Instrument 01/25/2020 12:00:00 AM EDT [facility] ([facility]) Results ID Date Data Source [id number] 08/02/2020 12:00:00 AM EST [facility] Name Value Range Interpretation Code Description Data Annamaria rce(s) Supporting Document(s) SARS-CoV-2 (COVID-19) RNA [Presence] in Respiratory specimen by PARMJIT with probe detection Positive for [facility] This lab was ordered by [facility] and reported by [employer] Procedure Vital Signs ID Date Data Source UNK Name Value Range Interpretation Code Description Data Source(s) Body surface area Derived from formula 2.02 m2 2.02 m2 [facility] ([facility]) Body mass index (BMI) [Ratio] 34.8 kg/m2 34.8 k g/m2 [facility] ([facility]) Body height 65 [in_i] 65 [in_i] [facility] ([facility]) 5'5" Body weight 94.802 kg 94.802 kg [facility] ([facility]) Body weight 209.00 [lb_av] 209.00 [lb_av] [facility] ([facility]) Oxygen saturation in Arterial blood by Pulse oximetry 99 % 99 % [facility] ([facility]) Respiratory rate 18 /min 18 /min [facility] ( [facility]) Body temperature 97.2 [degF] 97.2 [degF] [facility] ([facility]) Heart rate 64 /min 64 /min [facility] ([facility]) Diastolic blood pressure 70 mm[Hg] 70 mm[Hg] [facility] ([facility]) Systolic blood pressure 118 mm[Hg] 118 mm[Hg] M [facility] ([facility]) Body surface area Derived from formula 2.04 m2 2.04 m2 [facility] ([facility]) Body mass index (BMI) [Ratio] 35.6 kg/m2 35.6 k g/m2 [facility] ([facility]) Body height 65 [in_i] 65 [in_i] [facility]) 5'5" Body weight 97.127 kg 97.127 [facility] Body weight 214.12 [lb_av] 214.12 [lb_av] [facility] ([facility]) Oxygen saturation in Arterial blood by Pulse oximetry 96 % 96 % [facility] ([facility]) Respiratory rate 18 /min 18 /min [facility] ( [facility]) Body temperature 98.4 [degF] 98.4 [degF] [facility] ([facility]) Heart rate 60 /min 60 /min [facility] ([facility]) Diastolic blood pressure 74 mm[Hg] 74 mm[Hg] [facility] ([facility]) Systolic blood pressure 120 mm[Hg] 120 mm[Hg] [facility] ([facility]) Body surface area 2.04 m2 2.04 m2 [facility] ([facility]) Body surface area 2.01 m2 2.01 m2 [facility] ([facility]) Body surface area Derived from formula 2.01 m2 2.01 m2 [facility] ([facility]) Body mass index (BMI) [Ratio] 34.5 kg/m2 34.5 k g/m2 [facility] ([facility]) Body height 65 [in_i] 65 [in_i] [facility] ([facility]) 5'5" Body weight 94.122 kg 94.122 kg [facility] ([facility]) Body weight 207.50 [lb_av] 207.50 [lb_av] [facility] ([facility]) Oxygen saturation in Arterial blood by Pulse oximetry 97 % 97 % [facility] ([facility]) Respiratory rate 18 /min 18 /min [facility] ( [facility]) Body temperature 98.1 [degF] 98.1 [degF] [facility] ([facility]) Heart rate 72 /min 72 /min [facility] ([facility]) Diastolic blood pressure 80 mm[Hg] 80 mm[Hg] [facility] ([facility]) Systolic blood pressure 124 mm[Hg] 124 mm[Hg] M [facility] ([facility])
[2020-08-26 23:33] LABS: APPEARANCE, URINE HAZY (CLEAR); BACTERIA, URINE AUTO 1+ (NEGATIVE); BILIRUBIN, URINE AUTO NEGATIVE (NEGATIVE); BLOOD, URINE BLOOD 3+ (NEGATIVE); COLOR, URINE AMBER (YELLOW); GLUCOSE, URINE (UA) AUTO NEGATIVE (NEGATIVE); KETONE, URINE AUTO NEGATIVE (NEGATIVE); LEUKOCYTE ESTERASE, URINE AUTO NEGATIVE (NEGATIVE); MUCUS, URINE SMALL (NEGATIVE); NITRITE, URINE AUTO NEGATIVE (NEGATIVE); PROTEIN, URINE AUTO 2+ mg/dL (NEGATIVE); RBC, URINE AUTO 15 /HPF (0-3); SPECIFIC GRAVITY URINE AUTO 1.002 (1.002-1.035); SQUAMOUS EPITHELIAL CELL UR AU 0 /HPF (0-6); UROBILINOGEN, URINE AUTO 0.2 mg/dL (0.0-2.0); WBC, URINE AUTO 4 /HPF (0-3)
[2020-08-26 23:54] VITALS: BP 130/71
== END 2020-08-26 23:55 | disposition home or self-care (01) ==
LOC: M ED 21:11
DX: R31.9 Hematuria, unspecified (principal); T83.098A Other mechanical complication of other urinary catheter, initial encounter; E78.5 Hyperlipidemia, unspecified; J45.909 Unspecified asthma, uncomplicated; N40.1 Benign prostatic hyperplasia with lower urinary tract symptoms; Q85.00 Neurofibromatosis, unspecified; Z79.899 Other long term (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; Z87.448 Personal history of other diseases of urinary system; J44.9 Chronic obstructive pulmonary disease, unspecified; Z87.891 Personal history of nicotine dependence

== ENCOUNTER → 2020-09-05 | Outpatient (CLI) | payer MEDICARE ==
[2020-09-05 10:55] LABS: BLOOD UREA NITROGEN 13 MG/DL (7-18); CALCIUM LEVEL 8.8 MG/DL (8.8-10.2); CARBON DIOXIDE LEVEL 29 MEQ/L (21-32); CHLORIDE LEVEL 104 MEQ/L (98-107); CREATININE FOR GFR 0.86 MG/DL (0.70-1.30); GLOMERULAR FILTRATION RATE > 60.0 (>42); GLUCOSE, FASTING 91 MG/DL (70-100); SODIUM LEVEL 139 MEQ/L (136-145)
== END ==
LOC: M WUC 08:27
PROVIDERS: ATTEND Specialist
DX: R33.9 Retention of urine, unspecified (principal); R31.0 Gross hematuria; N40.1 Benign prostatic hyperplasia with lower urinary tract symptoms
CPT/HCPCS: 36415; 80048; G0103

== ENCOUNTER → 2020-09-14 | Outpatient (CLI) | payer MEDICARE ==
[~2020-09-14] MED LIST changes: +ISOVUE-370 76% 100ML VIAL As Ordered ONE
--- NOTE | 2020-09-14 11:03 | REP ---
INDICATION: GROSS HEMATURIA, URINARY RETENTION. COMPARISON: None TECHNIQUE: Axial precontrast, contrast-enhanced and delayed images from the lung bases to the pubic symphysis using 100 cc Isovue 370 intravenous contrast material. Coronal and sagittal reformations obtained. This CT examination was performed using the following dose reduction techniques: Automated exposure control, adjustment of mA and/or kv according to the patient's size, and the use of iterative reconstruction technique. FINDINGS: The prostate gland is markedly enlarged, significantly heterogeneous, and causes severe mass effect on the bladder with associated significant bladder wall thickening suggesting chronic outlet obstruction. There is a 5 cm fluid collection in the right hemipelvis adjacent to the lateral and prostate gland which is clearly separate from the ureter and includes a small calcification in its dependent portion raising the possibility of an irregularly-shaped bladder diverticulum (series 301 images 99-118). The kidneys demonstrate normal symmetric enhancement and generalized age-related changes without significant cortical thinning, perinephric stranding or hydroureteronephrosis and no nephroureterolithiasis, renal cystic or mass lesion. Liver, spleen, pancreas, and bilateral adrenal glands are normal. Evidence for prior cholecystectomy. The enteric system demonstrates diverticulosis and no evidence for bowel obstruction or acute inflammatory process. Further evaluation of the pelvis demonstrates moderate fat containing inguinal hernias and small scattered non-specific pelvic sidewall lymph nodes up to 9 mm. No pelvic fluid or ascites. No free air. No significant retroperitoneal adenopathy. Abdominal aorta without aneurysm or dissection. Musculoskeletal structures demonstrate age-related changes without acute osseous abnormality. IMPRESSION: 1. Markedly enlarged prostate gland with presumed secondary changes to the bladder and pelvis as described above. Further investigation is required to differentiate between benign prosthetic hypertrophy and malignancy. 2. Colonic/Sigmoid diverticulosis without acute diverticulitis. <Electronically signed by Zach Devlin > 09/14/20 [id number]
== END ==
LOC: M RAD 09:50
PROVIDERS: ATTEND Specialist
DX: N40.1 Benign prostatic hyperplasia with lower urinary tract symptoms (principal); R31.0 Gross hematuria; R33.9 Retention of urine, unspecified
CPT/HCPCS: 74178; Q9967

== ENCOUNTER → 2020-09-21 | Outpatient (REF) | payer MEDICARE ==
[~2020-09-21] MED LIST changes: -ISOVUE-370 76% 100ML VIAL As Ordered ONE
[2020-09-21 13:37] LABS: APPEARANCE, URINE CLOUDY (CLEAR); BACTERIA, URINE AUTO 2+ (NEGATIVE); BILIRUBIN, URINE AUTO NEGATIVE (NEGATIVE); BLOOD, URINE BLOOD 2+ (NEGATIVE); COLOR, URINE YELLOW (YELLOW); GLUCOSE, URINE (UA) AUTO NEGATIVE (NEGATIVE); KETONE, URINE AUTO TRACE mg/dL (NEGATIVE); LEUKOCYTE ESTERASE, URINE AUTO 3+ (NEGATIVE); MUCUS, URINE SMALL (NEGATIVE); NITRITE, URINE AUTO NEGATIVE (NEGATIVE); PROTEIN, URINE AUTO 2+ mg/dL (NEGATIVE); RBC, URINE AUTO 62 /HPF (0-3); SPECIFIC GRAVITY URINE AUTO 1.016 (1.002-1.035); SQUAMOUS EPITHELIAL CELL UR AU 0 /HPF (0-6); UROBILINOGEN, URINE AUTO 0.2 mg/dL (0.0-2.0); WBC, URINE AUTO TNTC /HPF (0-3)
== END ==
LOC: M SMT 13:00
PROVIDERS: ATTEND Nurse Practitioner Women's Health
DX: R31.0 Gross hematuria (principal)

== ENCOUNTER → 2020-09-29 | Outpatient (REF) | payer MEDICARE ==
[2020-09-29 13:18] LABS: BACTERIA, URINE AUTO NEGATIVE (NEGATIVE); MUCUS, URINE SMALL (NEGATIVE); RBC, URINE AUTO 22 /HPF (0-3); SQUAMOUS EPITHELIAL CELL UR AU 0 /HPF (0-6); WBC, URINE AUTO 3 /HPF (0-3)
== END ==
LOC: M SMT 12:52
PROVIDERS: ATTEND Specialist
DX: R31.0 Gross hematuria (principal); R33.9 Retention of urine, unspecified; R97.20 Elevated prostate specific antigen [PSA]; N40.1 Benign prostatic hyperplasia with lower urinary tract symptoms
CPT/HCPCS: 51798; 81015; 87086; G0463

== ENCOUNTER → 2020-10-24 | Outpatient (CLI) | payer MEDICARE ==
[2020-10-26 00:07] LABS: PSA % FREE 26.6 % (.); PSA FREE 1.09 ng/mL; PSA TOTAL 4.1 ng/mL (0.0-4.0)
== END ==
LOC: M WUC 08:06
PROVIDERS: ATTEND Specialist
DX: R31.0 Gross hematuria (principal); R33.9 Retention of urine, unspecified; R97.20 Elevated prostate specific antigen [PSA]; N40.1 Benign prostatic hyperplasia with lower urinary tract symptoms

== ENCOUNTER → 2021-01-18 | Outpatient (REF) | payer MEDICARE ==
[2021-01-18 17:28] LABS: APPEARANCE, URINE HAZY (CLEAR); BACTERIA, URINE AUTO 1+ (NEGATIVE); BILIRUBIN, URINE AUTO NEGATIVE (NEGATIVE); BLOOD, URINE BLOOD 3+ (NEGATIVE); COLOR, URINE YELLOW (YELLOW); GLUCOSE, URINE (UA) AUTO NEGATIVE (NEGATIVE); KETONE, URINE AUTO NEGATIVE (NEGATIVE); LEUKOCYTE ESTERASE, URINE AUTO 2+ (NEGATIVE); MUCUS, URINE SMALL (NEGATIVE); NITRITE, URINE AUTO NEGATIVE (NEGATIVE); PROTEIN, URINE AUTO NEGATIVE (NEGATIVE); RBC, URINE AUTO 19 /HPF (0-3); SQUAMOUS EPITHELIAL CELL UR AU 0 /HPF (0-6); UROBILINOGEN, URINE AUTO 0.2 mg/dL (0.0-2.0); WBC, URINE AUTO 77 /HPF (0-3)
== END ==
LOC: M SMT 16:50
PROVIDERS: ATTEND Nurse Practitioner Women's Health
DX: R31.0 Gross hematuria (principal)

== ENCOUNTER → 2021-01-23 | Outpatient (CLI) | payer MEDICARE ==
[2021-01-23 10:34] LABS: BASO % 0.3 % (0.0-1.0); EOS # 0.1 10^3/uL (0.0-0.5); EOS % 1.8 % (0.0-3.0); HEMOGLOBIN 13.9 g/dl (13.5-17.5); LYMPH # 1.2 10^3/uL (1.5-5.0); MEAN CORPUSCULAR HEMOGLOBIN 29.9 pg (27.0-33.0); MEAN CORPUSCULAR HGB CONC 32.3 g/dl (32.0-36.5); MEAN CORPUSCULAR VOLUME 92.5 fl (80.0-96.0); MONO # 0.6 10^3/uL (0.0-0.8); MONO % 9.8 % (2.0-8.0); NEUTROPHILS # 4.1 10^3/uL (1.5-8.5); NEUTROPHILS % 67.8 % (36.0-66.0); PLATELET COUNT, AUTOMATED 167 10^3/uL (150-450); RED BLOOD COUNT 4.65 10^6/uL (4.30-6.10)
[2021-01-23 10:54] LABS: HEMOGLOBIN A1c 5.6 %
[2021-01-23 11:13] LABS: ALBUMIN 3.4 GM/DL (3.2-5.2); ALT/SGPT 12 U/L (12-78); BILIRUBIN,TOTAL 0.8 MG/DL (0.2-1.0); BLOOD UREA NITROGEN 16 MG/DL (7-18); CALCIUM LEVEL 8.3 MG/DL (8.8-10.2); CARBON DIOXIDE LEVEL 27 MEQ/L (21-32); CHLORIDE LEVEL 106 MEQ/L (98-107); CHOLESTEROL LEVEL 146 MG/DL (<200); CHOLESTEROL RISK RATIO 2.654 (<5); CREATININE FOR GFR 1.18 MG/DL (0.70-1.30); GLOMERULAR FILTRATION RATE > 60.0 (>42); GLUCOSE, FASTING 85 MG/DL (70-100); HDL CHOLESTEROL 55 MG/DL (>40); LDL CHOLESTEROL 76 MG/DL (<100); NON-HDL-C 91 MG/DL; POTASSIUM SERUM 4.6 MEQ/L (3.5-5.1); SODIUM LEVEL 138 MEQ/L (136-145); TOTAL PROTEIN 6.5 GM/DL (6.4-8.2); TRIGLYCERIDES LEVEL 74 MG/DL (<150)
[2021-01-24 23:09] LABS: PSA TOTAL 1.5 ng/mL (0.0-4.0)
== END ==
LOC: M WUC 08:14
PROVIDERS: ATTEND Nurse Practitioner Family
DX: E78.00 Pure hypercholesterolemia, unspecified (principal); I10 Essential (primary) hypertension; E87.6 Hypokalemia; Z79.899 Other long term (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; Q85.00 Neurofibromatosis, unspecified; Z12.5 Encounter for screening for malignant neoplasm of prostate

== ENCOUNTER 2021-02-09 11:04 | Emergency (ER) | payer MEDICARE ==
[~2021-02-09] VITALS: Ht 165.1 cm; Wt 95.5 kg
[2021-02-09 12:36] LABS: BASO % 0.3 % (0.0-1.0); EOS # 0.1 10^3/uL (0.0-0.5); EOS % 1.1 % (0.0-3.0); HEMATOCRIT 42.2 % (42.0-52.0); HEMOGLOBIN 13.9 g/dl (13.5-17.5); LYMPH # 1.1 10^3/uL (1.5-5.0); LYMPH % 17.6 % (24.0-44.0); MEAN CORPUSCULAR HEMOGLOBIN 30.3 pg (27.0-33.0); MEAN CORPUSCULAR HGB CONC 32.9 g/dl (32.0-36.5); MEAN CORPUSCULAR VOLUME 91.9 fl (80.0-96.0); MONO # 0.5 10^3/uL (0.0-0.8); MONO % 8.4 % (2.0-8.0); NEUTROPHILS # 4.5 10^3/uL (1.5-8.5); NEUTROPHILS % 72.1 % (36.0-66.0); PLATELET COUNT, AUTOMATED 188 10^3/uL (150-450); RED BLOOD COUNT 4.59 10^6/uL (4.30-6.10); WHITE BLOOD COUNT 6.2 10^3/uL (4.0-10.0)
[2021-02-09 13:06] LABS: ALBUMIN 3.5 GM/DL (3.2-5.2); BILIRUBIN,DIRECT 0.2 MG/DL (0.0-0.2); BILIRUBIN,TOTAL 0.9 MG/DL (0.2-1.0); TOTAL PROTEIN 6.7 GM/DL (6.4-8.2)
[2021-02-09] MEDS ORDERED: cefTRIAXone SOD 1 GM in D5W MINI-BAG PLUS 50 ML IV ONE (13:25)
[2021-02-09] MEDS ORDERED: KETOROLAC 30 MG/ML 1ML VIAL IV ONE (13:25)
[2021-02-09] MEDS ORDERED: NS 1,000 ML IV ONE (13:25)
[2021-02-09] MEDS ORDERED: ISOVUE-370 76% 100ML VIAL As Ordered ONE (13:26)
--- NOTE | 2021-02-09 13:55 | REP ---
INDICATION: abd pain, left flank pain (suspect UTI). COMPARISON: Comparison CT study abdomen pelvis September 14, 2020.. TECHNIQUE: Helical scanning was acquired and 4 mm axial images are re-formatted. Coronal and sagittal MPR images were generated and reviewed. The contrast enhancement dose is 100 mL of intravenous Isovue 370. FINDINGS: Preliminary digital portable router operator radiograph shows an unremarkable bowel gas pattern. The lung bases are clear on axial CT images. The heart is mildly enlarged with four-chamber enlargement. No pericardial effusion is seen. No pleural effusion or upper abdominal ascites is seen. The liver and the spleen are normal in size homogeneous in texture. There is a splenule in the left upper abdomen. Normal adrenal glands are observed. No abnormality is noted in the pancreas. The gallbladder is surgically absent. No retroperitoneal mass or adenopathy is seen. The prostate is moderately to markedly enlarged elevating the bladder base. There is diffuse bladder wall thickening and trabeculation in there is a right-sided bladder diverticulum. A small superior and left-sided bladder diverticulum is also noted. There is left colonic diverticulosis without CT evidence of diverticulitis. A E right ventral hernia repair has been performed. No intrarenal or ureteral calculus is seen. IMPRESSION: 1. Left colonic diverticulosis without CT evidence of diverticulitis. 2. Marked enlargement the prostate. 3. Chronic diffuse bladder wall thickening with 2 bladder diverticuli 4. Post ventral herniorrhaphy. 5. Post cholecystectomy. 6. No urinary tract calculus or hydronephrosis. <Electronically signed by Yonathan Silva > 02/09/21 [id number]
[2021-02-09] MEDS ORDERED: METH-855 (14:41)
[2021-02-09] MEDS ORDERED: FINA5TAB2 (14:41)
[2021-02-09] MEDS ORDERED: CIPR-249 PO (15:18)
[2021-02-09 15:50] VITALS: BP 148/80
== END 2021-02-09 15:55 | disposition home or self-care (01) ==
LOC: M ED 11:04
DX: N30.90 Cystitis, unspecified without hematuria (principal); N40.1 Benign prostatic hyperplasia with lower urinary tract symptoms; Z79.899 Other long term (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
CPT/HCPCS: 74177; 80047; 80076; 81001; 83690; 85025; 87086; 96365; 96375; 99284; J0696; J1885; Q9967

== ENCOUNTER → 2021-02-23 | Outpatient (REF) | payer MEDICARE ==
[~2021-02-23] MED LIST changes: +CIPR-249 PO; +FINA5TAB2; +METH-855
== END ==
LOC: M SMT 18:07
PROVIDERS: ATTEND Urology
DX: R31.0 Gross hematuria (principal)

== ENCOUNTER → 2021-05-26 | Outpatient (CLI) | payer MEDICARE ==
[~2021-05-26] MED LIST changes: +D31000TA2 PO; +PRESCAP PO; +PROAAER10 INH
[2021-05-26 09:49] LABS: BASO % 0.3 % (0.0-1.0); EOS # 0.2 10^3/uL (0.0-0.5); EOS % 2.2 % (0.0-3.0); HEMATOCRIT 44.1 % (42.0-52.0); HEMOGLOBIN 14.4 g/dl (13.5-17.5); LYMPH # 1.4 10^3/uL (1.5-5.0); LYMPH % 18.9 % (24.0-44.0); MEAN CORPUSCULAR HEMOGLOBIN 30.7 pg (27.0-33.0); MEAN CORPUSCULAR HGB CONC 32.7 g/dl (32.0-36.5); MONO # 0.5 10^3/uL (0.0-0.8); MONO % 7.3 % (2.0-8.0); NEUTROPHILS # 5.2 10^3/uL (1.5-8.5); NEUTROPHILS % 70.8 % (36.0-66.0); PLATELET COUNT, AUTOMATED 185 10^3/uL (150-450); RED BLOOD COUNT 4.69 10^6/uL (4.30-6.10); WHITE BLOOD COUNT 7.3 10^3/uL (4.0-10.0)
[2021-05-26 10:25] LABS: ALBUMIN 3.1 GM/DL (3.2-5.2); ALT/SGPT 18 U/L (12-78); BILIRUBIN,TOTAL 0.7 MG/DL (0.2-1.0); BLOOD UREA NITROGEN 21 MG/DL (7-18); CALCIUM LEVEL 8.9 MG/DL (8.8-10.2); CARBON DIOXIDE LEVEL 30 MEQ/L (21-32); CHLORIDE LEVEL 108 MEQ/L (98-107); CHOLESTEROL LEVEL 154 MG/DL (<200); CHOLESTEROL RISK RATIO 2.406 (<5); GLOMERULAR FILTRATION RATE > 60.0 (>42); GLUCOSE, FASTING 87 MG/DL (70-100); HDL CHOLESTEROL 64 MG/DL (>40); LDL CHOLESTEROL 79 MG/DL (<100); NON-HDL-C 90 MG/DL; PROSTATIC SPECIFIC AG MONITOR 1.52 NG/ML (< 4.00); SODIUM LEVEL 142 MEQ/L (136-145); TOTAL PROTEIN 6.4 GM/DL (6.4-8.2); TRIGLYCERIDES LEVEL 57 MG/DL (<150)
[2021-05-26 10:40] LABS: HEMOGLOBIN A1c 5.4 %
[2021-05-28 12:28] LABS: VITAMIN B12 LEVEL 526 PG/ML (247-911)
== END ==
LOC: M LAB 08:38
PROVIDERS: ATTEND Nurse Practitioner Family
DX: E78.00 Pure hypercholesterolemia, unspecified (principal)

== ENCOUNTER → 2021-05-26 | Outpatient (CLI) | payer MEDICARE ==
[2021-05-26 09:48] LABS: HEMATOCRIT 44.5 % (42.0-52.0); HEMOGLOBIN 14.5 g/dl (13.5-17.5); MEAN CORPUSCULAR HEMOGLOBIN 30.7 pg (27.0-33.0); MEAN CORPUSCULAR HGB CONC 32.6 g/dl (32.0-36.5); MEAN CORPUSCULAR VOLUME 94.1 fl (80.0-96.0); PLATELET COUNT, AUTOMATED 183 10^3/uL (150-450); RED BLOOD COUNT 4.73 10^6/uL (4.30-6.10); WHITE BLOOD COUNT 7.1 10^3/uL (4.0-10.0)
[2021-05-26 10:09] LABS: APPEARANCE, URINE HAZY (CLEAR); BACTERIA, URINE AUTO 1+ (NEGATIVE); BILIRUBIN, URINE AUTO NEGATIVE (NEGATIVE); BLOOD, URINE BLOOD 2+ (NEGATIVE); COLOR, URINE YELLOW (YELLOW); GLUCOSE, URINE (UA) AUTO NEGATIVE (NEGATIVE); KETONE, URINE AUTO NEGATIVE (NEGATIVE); LEUKOCYTE ESTERASE, URINE AUTO 1+ (NEGATIVE); MUCUS, URINE SMALL (NEGATIVE); NITRITE, URINE AUTO NEGATIVE (NEGATIVE); PROTEIN, URINE AUTO 2+ mg/dL (NEGATIVE); RBC, URINE AUTO 67 /HPF (0-3); RENAL EPITHELIAL CELLS 1 /HPF; SPECIFIC GRAVITY URINE AUTO 1.012 (1.002-1.035); SQUAMOUS EPITHELIAL CELL UR AU 1 /HPF (0-6); TRANSITIONAL EPITHELIAL AUTO 1 /HPF; UROBILINOGEN, URINE AUTO 0.2 mg/dL (0.0-2.0); WBC, URINE AUTO 97 /HPF (0-3)
[2021-05-26 10:54] LABS: ALBUMIN 3.2 GM/DL (3.2-5.2); ALT/SGPT 17 U/L (12-78); BILIRUBIN,TOTAL 0.8 MG/DL (0.2-1.0); BLOOD UREA NITROGEN 21 MG/DL (7-18); CALCIUM LEVEL 8.9 MG/DL (8.8-10.2); CARBON DIOXIDE LEVEL 28 MEQ/L (21-32); CHLORIDE LEVEL 108 MEQ/L (98-107); CREATININE FOR GFR 1.03 MG/DL (0.70-1.30); GLOMERULAR FILTRATION RATE > 60.0 (>42); GLUCOSE, FASTING 88 MG/DL (70-100); POTASSIUM SERUM 4.6 MEQ/L (3.5-5.1); SODIUM LEVEL 140 MEQ/L (136-145); TOTAL PROTEIN 6.7 GM/DL (6.4-8.2)
[2021-05-28 23:10] LABS: PSA TOTAL 1.3 ng/mL (0.0-4.0)
== END ==
LOC: M LAB 08:36
PROVIDERS: ATTEND Urology
DX: N40.0 Benign prostatic hyperplasia without lower urinary tract symptoms (principal); R97.20 Elevated prostate specific antigen [PSA]

== ENCOUNTER → 2021-05-30 | Outpatient (CLI) | payer MEDICARE ==
--- NOTE | 2021-05-30 17:00 | REP ---
INDICATION: ENCOUNTER FOR PREPROCEDURAL RESPIRATORY EXAMINATION. COMPARISON: 02/20/2016 TECHNIQUE: PA and lateral FINDINGS: Chronic right lung base changes are noted status quo. The cardiomediastinal silhouette is stable. The heart is not enlarged. No acute patchy parenchymal opacities or pleural effusions have developed. There is no change in the osseous structures. IMPRESSION: Stable appearing chronic changes. There is no evidence of acute cardiopulmonary disease. <Electronically signed by Noah Cornejo > 05/30/21 [id number]
== END ==
LOC: M RAD 15:52
PROVIDERS: ATTEND Nurse Practitioner Family
DX: Z01.811 Encounter for preprocedural respiratory examination (principal)

== ENCOUNTER → 2021-06-02 | Outpatient (CLI) | payer MEDICARE | LOC: M LABSMTC 10:05 | PROVIDERS: ATTEND Anesthesiology | DX: Z01.812 Encounter for preprocedural laboratory examination (principal); Z20.822 Contact with and (suspected) exposure to COVID-19 ==

== ENCOUNTER 2021-06-07 08:58 | Observation (INO) | payer MEDICARE ==
[~2021-06-07] VITALS: Ht 165.1 cm; Wt 97.7 kg
[~2021-06-07 08:58] MED LIST changes: +CIPROFLOXACIN 400 MG in IV 1 EA IV ONE; -FINA5TAB2; +FINA5TAB2 PO; -FLON1SPR; +FLON1SPR NARES; +LIDOCAINE 1% MDV 20ML VIAL SQ PRN; +LR 1,000 ML IV ONE; -METH-855; +METH-855 PO; -POTA10CA32; +POTA10CA32 PO
[2021-06-07] MEDS ORDERED: MIDAZOLAM INJ 2MG/2ML VIAL (J2250 PER 1MG) As Ordered ONE (12:12)
[2021-06-07] MEDS ORDERED: SUGAMMADEX SODIUM 500 MG/5 ML VIAL (BRIDION) As Ordered ONE (12:13)
[2021-06-07] MEDS ORDERED: ROCURONIUM BROMIDE 50 MG/5 ML VIAL As Ordered ONE (12:13)
[2021-06-07] MEDS ORDERED: propofoL 200 MG/20 ML VIAL As Ordered ONE (12:13)
[2021-06-07] MEDS ORDERED: dexameTHASONE 4 MG/ML 1ML VIAL (J1100 PER 1MG) As Ordered ONE (12:13)
[2021-06-07] MEDS ORDERED: fentaNYL 100 MCG/2 ML INJECTION As Ordered ONE (12:13)
[2021-06-07] MEDS ORDERED: ONDANSETRON 4MG/2ML VIAL As Ordered ONE (12:13)
[2021-06-07] MEDS ORDERED: METOCLOPRAMIDE INJ 10MG/2ML VIAL (J2765 PER 1) As Ordered ONE (12:13)
[2021-06-07] MEDS ORDERED: LIDOCAINE 2% 100MG/5ML SDV (FOR ANES.) As Ordered ONE (12:13)
[2021-06-07] MEDS ORDERED: ACETAMINOPHEN 1000MG 100ML IV BTL (OFIRMEV) (J0131 PER 10MG) As Ordered ONE (12:42)
[2021-06-07] MEDS ORDERED: ANEXSIA, NORCO 7.5MG/325MG TABLET(HYDROCODONE/APAP) PO PRN (13:20)
[2021-06-07] MEDS ORDERED: ACETAMINOPHEN TAB 650MG DOSE (2X325MG) PO PRN (13:20)
[2021-06-07] MEDS ORDERED: METOCLOPRAMIDE INJ 10MG/2ML VIAL (J2765 PER 1) IV PRN (13:45)
[2021-06-07] MEDS ORDERED: LR 1,000 ML IV SCH (13:45)
[2021-06-07] MEDS ORDERED: oxyCODONE 5MG TAB PO PRN (13:45)
[2021-06-07] MEDS ORDERED: fentaNYL 100 MCG/2 ML INJECTION IV PRN (13:45)
[2021-06-07] MEDS ORDERED: ONDANSETRON 4MG/2ML VIAL IV PRN (13:45)
[2021-06-07 15:27] VITALS: BP 120/69
[2021-06-07] MEDS: D5W/0.45% SODIUM CHLORIDE 1,000 ML IV SCH ×2 (15:47→21:54)
[2021-06-07 16:01] VITALS: BP 118/67
[2021-06-07 16:08] LABS: HEMATOCRIT 40.2 % (42.0-52.0); HEMOGLOBIN 13.3 g/dl (13.5-17.5); MEAN CORPUSCULAR HEMOGLOBIN 30.9 pg (27.0-33.0); MEAN CORPUSCULAR HGB CONC 33.1 g/dl (32.0-36.5); MEAN CORPUSCULAR VOLUME 93.5 fl (80.0-96.0); PLATELET COUNT, AUTOMATED 178 10^3/uL (150-450); WHITE BLOOD COUNT 10.8 10^3/uL (4.0-10.0)
[2021-06-07 16:32] LABS: ALBUMIN 2.9 GM/DL (3.2-5.2); ALT/SGPT 18 U/L (12-78); BLOOD UREA NITROGEN 16 MG/DL (7-18); CALCIUM LEVEL 8.3 MG/DL (8.8-10.2); CARBON DIOXIDE LEVEL 27 MEQ/L (21-32); CHLORIDE LEVEL 106 MEQ/L (98-107); GLOMERULAR FILTRATION RATE > 60.0 (>42); GLUCOSE, FASTING 103 MG/DL (70-100); POTASSIUM SERUM 4.4 MEQ/L (3.5-5.1); SODIUM LEVEL 139 MEQ/L (136-145); TOTAL PROTEIN 6.1 GM/DL (6.4-8.2)
[2021-06-07 16:59] VITALS: BP 112/64
[2021-06-07 17:56] VITALS: BP 127/69
[2021-06-07 19:00] VITALS: BP 126/69
[2021-06-07] MEDS ORDERED: SYMBICORT 160/4.5MCG INHALER 6GM INH SCH (20:00)
[2021-06-07] MEDS ORDERED: AZO1CAP2 PO (20:21)
[2021-06-07] MEDS ORDERED: PRAV20TA2 PO (20:21)
[2021-06-07] MEDS ORDERED: HOME MED LIST COMPLETE! XX SCH (20:25)
[2021-06-07] MEDS: oxyBUTYnin 5 MG TAB PO SCH (20:38)
[2021-06-07] MEDS ORDERED: PRAVASTATIN 10 MG TAB PO SCH (21:00)
[2021-06-07 21:40] VITALS: BP 123/67
[2021-06-07] MEDS: CIPROFLOXACIN 400 MG in IV 1 EA IV SCH (22:15)
[2021-06-08 01:38] VITALS: BP 105/56
[2021-06-08] MEDS: D5W/0.45% SODIUM CHLORIDE 1,000 ML IV SCH ×2 (05:01→12:48)
[2021-06-08 05:42] LABS: HEMATOCRIT 38.3 % (42.0-52.0); HEMOGLOBIN 12.7 g/dl (13.5-17.5); MEAN CORPUSCULAR HEMOGLOBIN 31.1 pg (27.0-33.0); MEAN CORPUSCULAR HGB CONC 33.2 g/dl (32.0-36.5); MEAN CORPUSCULAR VOLUME 93.9 fl (80.0-96.0); PLATELET COUNT, AUTOMATED 190 10^3/uL (150-450); RED BLOOD COUNT 4.08 10^6/uL (4.30-6.10); WHITE BLOOD COUNT 12.5 10^3/uL (4.0-10.0)
[2021-06-08 06:09] LABS: ALBUMIN 2.8 GM/DL (3.2-5.2); ALT/SGPT 18 U/L (12-78); BILIRUBIN,TOTAL 0.7 MG/DL (0.2-1.0); BLOOD UREA NITROGEN 14 MG/DL (7-18); CALCIUM LEVEL 8.1 MG/DL (8.8-10.2); CARBON DIOXIDE LEVEL 28 MEQ/L (21-32); CHLORIDE LEVEL 106 MEQ/L (98-107); CREATININE FOR GFR 1.13 MG/DL (0.70-1.30); GLOMERULAR FILTRATION RATE > 60.0 (>42); GLUCOSE, FASTING 131 MG/DL (70-100); POTASSIUM SERUM 4.3 MEQ/L (3.5-5.1); SODIUM LEVEL 141 MEQ/L (136-145); TOTAL PROTEIN 5.9 GM/DL (6.4-8.2)
[2021-06-08 06:48] VITALS: BP 143/70
[2021-06-08] MEDS ORDERED: POTASSIUM CITRATE 1080 MG (10MEQ) TAB PO SCH (08:00)
[2021-06-08] MEDS: oxyBUTYnin 5 MG TAB PO SCH (08:15)
[2021-06-08] MEDS ORDERED: CIPR500T39 PO (08:56)
[2021-06-08] MEDS ORDERED: HYDR-3713 PO (08:56)
[2021-06-08] MEDS ORDERED: PYRI1TAB5 PO (08:56)
[2021-06-08] MEDS ORDERED: FLUTICASONE PROP 0.05% NASAL SPRAY 16 GM (FLONASE) NARES SCH (09:00)
[2021-06-08] MEDS ORDERED: FINASTERIDE 5 MG TAB PO SCH (09:00)
[2021-06-08] MEDS ORDERED: TERAZOSIN 5MG CAPSULE PO SCH (09:00)
[2021-06-08 10:00] VITALS: BP 116/63
[2021-06-08] MEDS: CIPROFLOXACIN 400 MG in IV 1 EA IV SCH (10:51)
== END 2021-06-08 15:25 | disposition home or self-care (01) ==
LOC: M SDC 08:58 → M MS5PR 08:59 → M SDC 15:20 → M MS5PR 15:20 → UNDOADMOB 06-08 15:25 → UNDODISOB 06-08 15:25 → M MS5PR 06-08 15:25 → M SDC 06-08 15:25
PROVIDERS: ADMIT Urology; ATTEND Urology
DX: N40.1 Benign prostatic hyperplasia with lower urinary tract symptoms (principal); J44.9 Chronic obstructive pulmonary disease, unspecified; E78.5 Hyperlipidemia, unspecified; Z79.899 Other long term (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
CPT/HCPCS: 36415; 52601; 80053; 85027; 88305; 94640; 96365; 96366; G0378; J0131; J0744; J1100; J2250; J2405; J2765; J3010

== ENCOUNTER → 2021-07-17 | Outpatient (REF) | payer MEDICARE ==
[~2021-07-17] MED LIST changes: +AZO1CAP2 PO; +CIPR500T39 PO; -CIPROFLOXACIN 400 MG in IV 1 EA IV ONE; +HYDR-3713 PO; -LIDOCAINE 1% MDV 20ML VIAL SQ PRN; -LR 1,000 ML IV ONE; +PRAV20TA2 PO; +PYRI1TAB5 PO
== END ==
LOC: M SMT 16:52
PROVIDERS: ATTEND Urology
DX: N40.1 Benign prostatic hyperplasia with lower urinary tract symptoms (principal)

== ENCOUNTER 2021-09-21 11:09 | Inpatient (IN) | payer MEDICARE, OTHER ==
[~2021-09-21] VITALS: Ht 162.6 cm; Wt 94.1 kg
[~2021-09-21 11:09] MED LIST changes: -D31000TA2 PO; +VITA100093 PO
[2021-09-21 11:46] LABS: BASO % 0.3 % (0.0-1.0); EOS % 0.2 % (0.0-3.0); HEMATOCRIT 35.5 % (42.0-52.0); HEMOGLOBIN 11.6 g/dl (13.5-17.5); LYMPH % 10.6 % (24.0-44.0); MEAN CORPUSCULAR HEMOGLOBIN 30.4 pg (27.0-33.0); MEAN CORPUSCULAR HGB CONC 32.7 g/dl (32.0-36.5); MEAN CORPUSCULAR VOLUME 93.2 fl (80.0-96.0); MONO # 0.5 10^3/uL (0.0-0.8); MONO % 5.2 % (2.0-8.0); NEUTROPHILS % 83.2 % (36.0-66.0); PLATELET COUNT, AUTOMATED 164 10^3/uL (150-450); RED BLOOD COUNT 3.81 10^6/uL (4.30-6.10); WHITE BLOOD COUNT 9.6 10^3/uL (4.0-10.0)
[2021-09-21 12:02] LABS: INR 1.12; PROTHROMBIN TIME 14.8 SECONDS (12.7-14.5)
[2021-09-21 12:14] LABS: ALBUMIN 3.3 GM/DL (3.2-5.2); ALT/SGPT 16 U/L (12-78); BILIRUBIN,DIRECT 0.2 MG/DL (0.0-0.2); BILIRUBIN,TOTAL 0.7 MG/DL (0.2-1.0); BLOOD UREA NITROGEN 37 MG/DL (7-18); CALCIUM LEVEL 8.7 MG/DL (8.8-10.2); CARBON DIOXIDE LEVEL 23 MEQ/L (21-32); CHLORIDE LEVEL 111 MEQ/L (98-107); CREATININE FOR GFR 1.14 MG/DL (0.70-1.30); GLOMERULAR FILTRATION RATE > 60.0 (>42); GLUCOSE, FASTING 96 MG/DL (70-100); LIPASE 54 U/L (73-393); POTASSIUM SERUM 4.1 MEQ/L (3.5-5.1); SODIUM LEVEL 142 MEQ/L (136-145); TOTAL PROTEIN 6.5 GM/DL (6.4-8.2)
[2021-09-21] MEDS ORDERED: HOME MED LIST COMPLETE! XX SCH (13:00)
[2021-09-21 13:24] LABS: RSV AMPLIFICATION NEGATIVE (NEGATIVE)
[2021-09-21] MEDS ORDERED: ALBUTEROL 90 MCG/ACT 8GM HFA INHALER INH PRN (14:00)
[2021-09-21] MEDS ORDERED: DEXTROSE 50% 50 ML SYRINGE IV PRN (14:05)
[2021-09-21] MEDS ORDERED: GLUCOSE 4GM CHEW TABLET PO PRN (14:05)
[2021-09-21] MEDS: PANTOPRAZOLE 40MG VIAL (C9113 PER 1) IV SCH ×2 (14:05→20:24)
[2021-09-21] MEDS ORDERED: GLUCAGON INJ 1MG VIAL SC PRN (14:05)
[2021-09-21] MEDS: NS 1,000 ML IV SCH ×2 (14:06→15:56)
[2021-09-21 15:17] LABS: PERCENT SATURATION 26.4 % (19.7-50.0)
[2021-09-21] MEDS: SUCRALFATE SUSP 1GM/10ML UD PO SCH ×2 (15:56→18:00)
[2021-09-21 18:24] LABS: HEMATOCRIT 29.8 % (42.0-52.0); HEMOGLOBIN 9.8 g/dl (13.5-17.5)
[2021-09-21] MEDS: SYMBICORT 160/4.5MCG INHALER 6GM INH SCH (20:27)
[2021-09-21] MEDS ORDERED: FINASTERIDE 5 MG TAB PO SCH (21:00)
[2021-09-21] MEDS ORDERED: VITAMIN D 1,000 INTERNATIONAL UNITS TABLET PO SCH (21:00)
[2021-09-21] MEDS ORDERED: FLUTICASONE PROP 0.05% NASAL SPRAY 16 GM (FLONASE) NARES SCH (21:00)
[2021-09-21] MEDS ORDERED: PRAVASTATIN 20 MG TAB PO SCH (21:00)
[2021-09-22 00:23] LABS: HEMATOCRIT 29.4 % (42.0-52.0); HEMOGLOBIN 9.6 g/dl (13.5-17.5)
[2021-09-22] MEDS: SUCRALFATE SUSP 1GM/10ML UD PO SCH ×3 (02:49→11:30)
[2021-09-22] MEDS ORDERED: METAL LOCK LOOP XX ONE ×2 (03:26→05:15)
[2021-09-22 07:12] LABS: HEMATOCRIT 29.7 % (42.0-52.0); HEMOGLOBIN 9.9 g/dl (13.5-17.5); MEAN CORPUSCULAR HEMOGLOBIN 30.8 pg (27.0-33.0); MEAN CORPUSCULAR HGB CONC 33.3 g/dl (32.0-36.5); MEAN CORPUSCULAR VOLUME 92.5 fl (80.0-96.0); PLATELET COUNT, AUTOMATED 144 10^3/uL (150-450); RED BLOOD COUNT 3.21 10^6/uL (4.30-6.10)
[2021-09-22] MEDS ORDERED: propofoL 200 MG/20 ML VIAL As Ordered ONE (07:24)
[2021-09-22] MEDS ORDERED: fentaNYL 100 MCG/2 ML INJECTION As Ordered ONE (07:24)
[2021-09-22] MEDS ORDERED: LIDOCAINE 2% 100MG/5ML SDV (FOR ANES.) As Ordered ONE (07:24)
[2021-09-22 07:27] LABS: BLOOD UREA NITROGEN 22 MG/DL (7-18); CALCIUM LEVEL 7.6 MG/DL (8.8-10.2); CARBON DIOXIDE LEVEL 25 MEQ/L (21-32); CHLORIDE LEVEL 115 MEQ/L (98-107); CREATININE FOR GFR 0.74 MG/DL (0.70-1.30); GLOMERULAR FILTRATION RATE > 60.0 (>42); GLUCOSE, FASTING 87 MG/DL (70-100); MAGNESIUM LEVEL 1.9 MG/DL (1.8-2.4); POTASSIUM SERUM 3.6 MEQ/L (3.5-5.1); SODIUM LEVEL 145 MEQ/L (136-145)
[2021-09-22] MEDS ORDERED: GLYCOPYRROLATE INJ 0.2 MG/ML 2 ML VIAL As Ordered ONE (08:36)
[2021-09-22] MEDS ORDERED: ONDANSETRON 4MG/2ML VIAL IV PRN (09:30)
[2021-09-22] MEDS ORDERED: LR 1,000 ML IV SCH (09:30)
[2021-09-22 09:49] VITALS: BP 108/55
[2021-09-22] MEDS ORDERED: OMEP40CA4 PO (09:52)
[2021-09-22] MEDS ORDERED: SUCR1SS PO (09:52)
[2021-09-22] MEDS: SYMBICORT 160/4.5MCG INHALER 6GM INH SCH (09:53)
[2021-09-22] MEDS: PANTOPRAZOLE 40MG VIAL (C9113 PER 1) IV SCH (11:30)
[2021-09-22 12:45] VITALS: BP 111/55
[2021-09-22 12:48] VITALS: BP 105/58
[2021-09-22 12:51] VITALS: BP 100/57
[2021-09-22 16:00] VITALS: BP 115/58
== END 2021-09-22 17:50 | disposition home health service (06) | DRG 379 ==
LOC: M ED 11:09 → M ED INP 14:04 → ENRESERV 09-22 09:29 → M PCU 09-22 09:44
PROVIDERS: ADMIT Internal Medicine; ATTEND Internal Medicine
PROC: 0DB58ZX Excision of Esophagus, Via Natural or Artificial Opening Endoscopic, Diagnostic (ICD-10-PCS; 2021-09-22)
PROC: 0DB78ZX Excision of Stomach, Pylorus, Via Natural or Artificial Opening Endoscopic, Diagnostic (ICD-10-PCS; principal; 2021-09-22 08:00)
DX: K92.2 Gastrointestinal hemorrhage, unspecified (principal); D50.0 Iron deficiency anemia secondary to blood loss (chronic); I95.2 Hypotension due to drugs; J44.9 Chronic obstructive pulmonary disease, unspecified; N40.0 Benign prostatic hyperplasia without lower urinary tract symptoms; E55.9 Vitamin D deficiency, unspecified; E78.5 Hyperlipidemia, unspecified; K22.89 Other specified disease of esophagus; K44.9 Diaphragmatic hernia without obstruction or gangrene; K29.50 Unspecified chronic gastritis without bleeding; K31.89 Other diseases of stomach and duodenum; T44.6X5A Adverse effect of alpha-adrenoreceptor antagonists, initial encounter; Z86.010 Personal history of colon polyps; Z90.49 Acquired absence of other specified parts of digestive tract; Z87.19 Personal history of other diseases of the digestive system; Z87.891 Personal history of nicotine dependence; Z79.899 Other long term (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; Z20.822 Contact with and (suspected) exposure to COVID-19

== ENCOUNTER → 2022-03-16 | Outpatient (CLI) | payer MEDICARE, OTHER ==
[~2022-03-16] MED LIST changes: +OMEP40CA4 PO; +SUCR1SS PO
[2022-03-16 09:09] LABS: BASO % 0.6 % (0.0-1.0); EOS # 0.1 10^3/uL (0.0-0.5); EOS % 1.1 % (0.0-3.0); HEMATOCRIT 39.4 % (42.0-52.0); HEMOGLOBIN 12.4 g/dl (13.5-17.5); LYMPH # 1.4 10^3/uL (1.5-5.0); MEAN CORPUSCULAR HEMOGLOBIN 27.4 pg (27.0-33.0); MEAN CORPUSCULAR HGB CONC 31.5 g/dl (32.0-36.5); MEAN CORPUSCULAR VOLUME 87.2 fl (80.0-96.0); MONO # 0.5 10^3/uL (0.0-0.8); MONO % 8.2 % (2.0-8.0); NEUTROPHILS # 4.5 10^3/uL (1.5-8.5); NEUTROPHILS % 67.8 % (36.0-66.0); PLATELET COUNT, AUTOMATED 193 10^3/uL (150-450); RED BLOOD COUNT 4.52 10^6/uL (4.30-6.10); WHITE BLOOD COUNT 6.6 10^3/uL (4.0-10.0)
[2022-03-16 09:28] LABS: HEMOGLOBIN A1c 5.6 %
[2022-03-16 09:56] LABS: ALBUMIN 3.1 GM/DL (3.2-5.2); ALT/SGPT 16 U/L (12-78); BILIRUBIN,TOTAL 0.6 MG/DL (0.2-1.0); BLOOD UREA NITROGEN 12 MG/DL (7-18); CALCIUM LEVEL 8.6 MG/DL (8.8-10.2); CARBON DIOXIDE LEVEL 28 MEQ/L (21-32); CHLORIDE LEVEL 109 MEQ/L (98-107); CHOLESTEROL LEVEL 148 MG/DL (<200); CHOLESTEROL RISK RATIO 2.901 (<5); CREATININE FOR GFR 0.99 MG/DL (0.70-1.30); GLOMERULAR FILTRATION RATE > 60.0 (>42); GLUCOSE, FASTING 92 MG/DL (70-100); HDL CHOLESTEROL 51 MG/DL (>40); LDL CHOLESTEROL 81 MG/DL (<100); NON-HDL-C 97 MG/DL; POTASSIUM SERUM 4.5 MEQ/L (3.5-5.1); SODIUM LEVEL 140 MEQ/L (136-145); TOTAL PROTEIN 6.3 GM/DL (6.4-8.2); TRIGLYCERIDES LEVEL 78 MG/DL (<150)
[2022-03-18 10:31] LABS: VITAMIN B12 LEVEL 422 PG/ML (247-911)
== END ==
LOC: M LAB 08:18
PROVIDERS: ATTEND Nurse Practitioner Family
DX: Z00.01 Encounter for general adult medical examination with abnormal findings (principal)

== ENCOUNTER → 2022-06-23 | Outpatient (CLI) | payer MEDICARE, OTHER ==
[2022-06-23 10:16] LABS: BASO % 0.4 % (0.0-1.0); EOS # 0.1 10^3/uL (0.0-0.5); EOS % 1.4 % (0.0-3.0); HEMATOCRIT 38.8 % (42.0-52.0); HEMOGLOBIN 11.9 g/dl (13.5-17.5); LYMPH # 1.3 10^3/uL (1.5-5.0); LYMPH % 22.4 % (24.0-44.0); MEAN CORPUSCULAR HEMOGLOBIN 27.8 pg (27.0-33.0); MEAN CORPUSCULAR HGB CONC 30.7 g/dl (32.0-36.5); MEAN CORPUSCULAR VOLUME 90.7 fl (80.0-96.0); MONO # 0.5 10^3/uL (0.0-0.8); MONO % 9.5 % (2.0-8.0); NEUTROPHILS # 3.7 10^3/uL (1.5-8.5); NEUTROPHILS % 65.9 % (36.0-66.0); PLATELET COUNT, AUTOMATED 198 10^3/uL (150-450); RED BLOOD COUNT 4.28 10^6/uL (4.30-6.10); WHITE BLOOD COUNT 5.7 10^3/uL (4.0-10.0)
[2022-06-23 10:39] LABS: HEMOGLOBIN A1c 5.4 % (4.0-6.0)
[2022-06-23 10:53] LABS: ALBUMIN 3.3 G/DL (3.2-5.2); ALT/SGPT 18 U/L (7.0-40); BILIRUBIN,TOTAL 0.7 MG/DL (0.3-1.2); BLOOD UREA NITROGEN 19 MG/DL (9-23); CALCIUM LEVEL 8.9 MG/DL (8.3-10.6); CARBON DIOXIDE LEVEL 27 MMOL/L (20-31); CHLORIDE LEVEL 105 MMOL/L (98-107); CHOLESTEROL LEVEL 137 MG/DL (<200); CHOLESTEROL RISK RATIO 2.63 (<5); CREATININE FOR GFR 0.87 MG/DL (0.70-1.30); GLOMERULAR FILTRATION RATE > 60.0 (>42); GLUCOSE, FASTING 93 MG/DL (74-106); HDL CHOLESTEROL 51.9 MG/DL (>40); IRON (FE) 33 UG/DL (65-175); LDL CHOLESTEROL 74.7 MG/DL (<100); NON-HDL-C 85 MG/DL; PERCENT SATURATION 9.3 % (19.7-50.0); POTASSIUM SERUM 5.1 MMOL/L (3.5-5.1); SODIUM LEVEL 142 MMOL/L (136-145); THYROID STIMULATING HORMONE 1.449 uIU/ML (0.55-4.78); TOTAL IRON BINDING CAPACITY 356 UG/DL (250-425); TOTAL PROTEIN 6.3 G/DL (5.7-8.2); TOTAL PROTEIN 6.3 GM/DL (6.4-8.2); TRIGLYCERIDES LEVEL 52 MG/DL (<150); VITAMIN B12 LEVEL 539 PG/ML (211-911)
== END ==
LOC: M LAB 08:51
PROVIDERS: ATTEND Nurse Practitioner Family
DX: D64.9 Anemia, unspecified (principal); Z79.899 Other long term (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
CPT/HCPCS: 36415; 80053; 80061; 82607; 82652; 83010; 83036; 83550; 84165; 84443; 85025; 85046; 86880; G0103

== ENCOUNTER → 2022-09-21 | Outpatient (CLI) | payer MEDICARE, OTHER ==
[~2022-09-21] MED LIST changes: -POTA10CA32 PO; +POTA10CA33 PO
[2022-09-21 09:09] LABS: BASO % 0.4 % (0.0-1.0); EOS # 0.1 10^3/uL (0.0-0.5); EOS % 1.8 % (0.0-3.0); HEMATOCRIT 44.2 % (42.0-52.0); HEMOGLOBIN 14.2 g/dl (13.5-17.5); LYMPH # 1.6 10^3/uL (1.5-5.0); LYMPH % 23.6 % (24.0-44.0); MEAN CORPUSCULAR HEMOGLOBIN 29.6 pg (27.0-33.0); MEAN CORPUSCULAR HGB CONC 32.1 g/dl (32.0-36.5); MEAN CORPUSCULAR VOLUME 92.3 fl (80.0-96.0); MONO # 0.5 10^3/uL (0.0-0.8); MONO % 7.1 % (2.0-8.0); NEUTROPHILS # 4.5 10^3/uL (1.5-8.5); NEUTROPHILS % 66.7 % (36.0-66.0); PLATELET COUNT, AUTOMATED 197 10^3/uL (150-450); RED BLOOD COUNT 4.79 10^6/uL (4.30-6.10); WHITE BLOOD COUNT 6.7 10^3/uL (4.0-10.0)
[2022-09-21 09:22] LABS: HEMOGLOBIN A1c 5.7 % (4.0-6.0)
[2022-09-21 09:34] LABS: ALBUMIN 3.4 G/DL (3.2-5.2); ALKALINE PHOSPHATASE 69 U/L (46-116); ALT/SGPT 13 U/L (7.0-40); AST/SGOT 16 U/L (<34); BILIRUBIN,TOTAL 0.9 MG/DL (0.3-1.2); BLOOD UREA NITROGEN 13 MG/DL (9-23); CALCIUM LEVEL 8.6 MG/DL (8.3-10.6); CARBON DIOXIDE LEVEL 30 MMOL/L (20-31); CHLORIDE LEVEL 105 MMOL/L (98-107); CHOLESTEROL LEVEL 168 MG/DL (<200); CHOLESTEROL RISK RATIO 3.18 (<5); CREATININE FOR GFR 0.88 MG/DL (0.70-1.30); GLOMERULAR FILTRATION RATE > 60.0 (>42); GLUCOSE, FASTING 92 MG/DL (74-106); HDL CHOLESTEROL 52.8 MG/DL (>40); IRON (FE) 98 UG/DL (65-175); LDL CHOLESTEROL 93.8 MG/DL (<100); NON-HDL-C 115 MG/DL; PERCENT SATURATION 30.9 % (19.7-50.0); POTASSIUM SERUM 4.3 MMOL/L (3.5-5.1); SODIUM LEVEL 141 MMOL/L (136-145); TOTAL IRON BINDING CAPACITY 317 UG/DL (250-425); TOTAL PROTEIN 6.4 G/DL (5.7-8.2); TRIGLYCERIDES LEVEL 107 MG/DL (<150)
[2022-09-21 09:35] LABS: THYROID STIMULATING HORMONE 3.797 uIU/ML (0.55-4.78)
[2022-09-21 09:36] LABS: VITAMIN B12 LEVEL 769 PG/ML (211-911)
[2022-09-25 14:09] LABS: PSA TOTAL 1.2 ng/mL (0.0-4.0); VITAMIN D 1,25 DIHYDROXY 58.5 pg/mL (24.8-81.5)
== END ==
LOC: M LAB 08:23
PROVIDERS: ATTEND Nurse Practitioner Family
DX: I10 Essential (primary) hypertension (principal); Z79.899 Other long term (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; Z12.5 Encounter for screening for malignant neoplasm of prostate

== ENCOUNTER 2022-12-17 06:05 | Day surgery (SDC) | payer MEDICARE, OTHER ==
[~2022-12-17] VITALS: Ht 162.6 cm; Wt 101.6 kg
[~2022-12-17 06:05] MED LIST changes: +ALBU8.5H INH; +FERR324T2 PO; +PRES10CA2 PO; +PROPARACAINE 0.5% OPHTH SOL 15ML OD ONE
[2022-12-17] MEDS ORDERED: LIDOCAINE 1% SDV 5ML VIAL As Ordered ONE (06:36)
[2022-12-17] MEDS ORDERED: CEFUROXIME 1MG/0.1ML INTRACAMERAL INJ As Ordered ONE (06:37)
[2022-12-17] MEDS ORDERED: BSS IRR 500ML/OMIDRIA 4ML IRR BAG (OR ONLY) As Ordered ONE (06:37)
[2022-12-17] MEDS: CYCLOPENTOLATE 1% OPHTH SOLN 2ML BTL OD SCH ×2 (06:47→06:50)
[2022-12-17] MEDS: OFLOXACIN 0.3 % (OCUFLOX) OPTH SOL 5ML OD SCH ×2 (06:47→06:50)
[2022-12-17] MEDS: PHENYLEPHRINE 2.5% OPHTH SOL 2ML OD SCH ×2 (06:47→06:50)
[2022-12-17] MEDS: TROPICAMIDE 1% OPHTH SOLN 15ML OD SCH ×2 (06:47→06:50)
[2022-12-17] MEDS ORDERED: MIDAZOLAM INJ 2MG/2ML VIAL As Ordered ONE (07:02)
[2022-12-17] MEDS ORDERED: fentaNYL 100 MCG/2 ML INJECTION As Ordered ONE (07:02)
[2022-12-17] MEDS ORDERED: TRYPAN BLUE 0.06 % 2.25 ML OPHTH SYR (VISIONBLUE) As Ordered ONE (08:00)
[2022-12-17 08:18] VITALS: BP 148/83; TEMP 98.4; O2SAT 97
== END 2022-12-17 08:40 | disposition home or self-care (01) ==
LOC: M SDC 06:05
PROVIDERS: ATTEND Ophthalmology
DX: H25.11 Age-related nuclear cataract, right eye (principal); I10 Essential (primary) hypertension; K92.2 Gastrointestinal hemorrhage, unspecified; D64.9 Anemia, unspecified; J44.9 Chronic obstructive pulmonary disease, unspecified; R06.83 Snoring; N40.0 Benign prostatic hyperplasia without lower urinary tract symptoms; Z87.891 Personal history of nicotine dependence; Z79.899 Other long term (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
CPT/HCPCS: 66984; J0697; J1097; J2250; J3010; V2632

== ENCOUNTER → 2023-06-16 | Outpatient (CLI) | payer MEDICARE, MEDICAID ==
[~2023-06-16] MED LIST changes: -POTA10CA33 PO; +POTA10CA60 PO; -PROPARACAINE 0.5% OPHTH SOL 15ML OD ONE
[2023-06-16 10:13] LABS: HEMATOCRIT 43.1 % (42.0-52.0); HEMOGLOBIN 14.1 g/dl (13.5-17.5); MEAN CORPUSCULAR HEMOGLOBIN 31.3 pg (27.0-33.0); MEAN CORPUSCULAR HGB CONC 32.7 g/dl (32.0-36.5); MEAN CORPUSCULAR VOLUME 95.6 fl (80.0-96.0); PLATELET COUNT, AUTOMATED 173 10^3/uL (150-450); RED BLOOD COUNT 4.51 10^6/uL (4.30-6.10); WHITE BLOOD COUNT 6.6 10^3/uL (4.0-10.0)
[2023-06-16 10:20] LABS: HEMOGLOBIN A1c 5.2 % (4.0-6.0)
[2023-06-16 10:38] LABS: ALBUMIN 3.5 G/DL (3.2-5.2); ALKALINE PHOSPHATASE 65 U/L (46-116); ALT/SGPT 14 U/L (7.0-40); AST/SGOT 15 U/L (<34); BLOOD UREA NITROGEN 15 MG/DL (9-23); CALCIUM LEVEL 8.6 MG/DL (8.3-10.6); CARBON DIOXIDE LEVEL 30 MMOL/L (20-31); CHLORIDE LEVEL 106 MMOL/L (98-107); CHOLESTEROL LEVEL 187 MG/DL (<200); CHOLESTEROL RISK RATIO 3.59 (<5); CREATININE FOR GFR 0.89 MG/DL (0.70-1.30); GLOMERULAR FILTRATION RATE > 60.0 (>42); GLUCOSE, FASTING 90 MG/DL (74-106); IRON (FE) 70 UG/DL (65-175); LDL CHOLESTEROL 115.6 MG/DL (<100); PERCENT SATURATION 24.5 % (19.7-50.0); SODIUM LEVEL 143 MMOL/L (136-145); TOTAL IRON BINDING CAPACITY 286 UG/DL (250-425); TOTAL PROTEIN 6.5 G/DL (5.7-8.2); TRIGLYCERIDES LEVEL 97 MG/DL (<150)
[2023-06-16 13:41] LABS: TOTAL 25(OH) VITAMIN D 48.9 NG/ML (20.0-100.0)
== END ==
LOC: M LAB 09:21
PROVIDERS: ATTEND Registered Nurse
DX: I10 Essential (primary) hypertension (principal); E78.00 Pure hypercholesterolemia, unspecified; D64.9 Anemia, unspecified; E55.9 Vitamin D deficiency, unspecified; R73.03 Prediabetes

== ENCOUNTER 2023-08-27 11:20 | Day surgery (SDC) | payer OTHER, MEDICAID ==
[~2023-08-27] VITALS: Ht 162.6 cm; Wt 97.5 kg
[~2023-08-27 11:20] MED LIST changes: +NS 1,000 ML IV ONE
[2023-08-27] MEDS ORDERED: LIDOCAINE 2% 100MG/5ML SDV (FOR ANES.) As Ordered ONE (11:35)
[2023-08-27] MEDS ORDERED: propofoL 200 MG/20 ML VIAL As Ordered ONE (11:35)
[2023-08-27] MEDS ORDERED: fentaNYL 100 MCG/2 ML INJECTION As Ordered ONE (11:36)
[2023-08-27 14:27] VITALS: BP 155/74; O2SAT 96
== END 2023-08-27 14:27 | disposition home or self-care (01) ==
LOC: M OPP 11:20
PROVIDERS: ATTEND Surgery
DX: Z12.11 Encounter for screening for malignant neoplasm of colon (principal); Z86.010 Personal history of colon polyps; D12.2 Benign neoplasm of ascending colon; D12.5 Benign neoplasm of sigmoid colon; K57.30 Diverticulosis of large intestine without perforation or abscess without bleeding; K22.89 Other specified disease of esophagus; K44.9 Diaphragmatic hernia without obstruction or gangrene; K29.70 Gastritis, unspecified, without bleeding; K22.70 Barrett's esophagus without dysplasia; Z87.891 Personal history of nicotine dependence; Z79.02 Long term (current) use of antithrombotics/antiplatelets; Z79.51 Long term (current) use of inhaled steroids; Z79.899 Other long term (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
CPT/HCPCS: 43239; 45380; 88305; J3010

== ENCOUNTER → 2023-11-08 | Outpatient (CLI) | payer OTHER, MEDICAID ==
[~2023-11-08] MED LIST changes: -NS 1,000 ML IV ONE
[2023-11-08 10:38] LABS: HEMATOCRIT 39.5 % (42.0-52.0); HEMOGLOBIN 12.7 g/dl (13.5-17.5); MEAN CORPUSCULAR HEMOGLOBIN 31.1 pg (27.0-33.0); MEAN CORPUSCULAR HGB CONC 32.2 g/dl (32.0-36.5); MEAN CORPUSCULAR VOLUME 96.8 fl (80.0-96.0); PLATELET COUNT, AUTOMATED 166 10^3/uL (150-450); RED BLOOD COUNT 4.08 10^6/uL (4.30-6.10); WHITE BLOOD COUNT 6.2 10^3/uL (4.0-10.0)
[2023-11-08 10:55] LABS: HEMOGLOBIN A1c 5.1 % (4.0-6.0)
[2023-11-08 11:01] LABS: IRON (FE) 91 UG/DL (65-175)
[2023-11-08 11:02] LABS: ALBUMIN 3.1 G/DL (3.2-5.2); ALKALINE PHOSPHATASE 66 U/L (46-116); ALT/SGPT 14 U/L (7.0-40); AST/SGOT 14 U/L (<34); BLOOD UREA NITROGEN 18 MG/DL (9-23); CALCIUM LEVEL 8.4 MG/DL (8.3-10.6); CARBON DIOXIDE LEVEL 30 MMOL/L (20-31); CHLORIDE LEVEL 106 MMOL/L (98-107); CHOLESTEROL LEVEL 155 MG/DL (<200); CHOLESTEROL RISK RATIO 2.96 (<5); CREATININE FOR GFR 0.89 MG/DL (0.70-1.30); GLOMERULAR FILTRATION RATE > 60.0 (>42); GLUCOSE, FASTING 94 MG/DL (74-106); HDL CHOLESTEROL 52.2 MG/DL (>40); LDL CHOLESTEROL 91.8 MG/DL (<100); NON-HDL-C 102.8 MG/DL; POTASSIUM SERUM 4.1 MMOL/L (3.5-5.1); SODIUM LEVEL 139 MMOL/L (136-145); TOTAL PROTEIN 6.1 G/DL (5.7-8.2); TRIGLYCERIDES LEVEL 55 MG/DL (<150)
[2023-11-08 11:04] LABS: FERRITIN 23.6 NG/ML (10.5-307.3); TOTAL 25(OH) VITAMIN D 39.7 NG/ML (20.0-100.0); VITAMIN B12 LEVEL 713 PG/ML (211-911)
== END ==
LOC: M LAB 10:02
PROVIDERS: ATTEND Registered Nurse
DX: I10 Essential (primary) hypertension (principal); E78.00 Pure hypercholesterolemia, unspecified; E55.9 Vitamin D deficiency, unspecified; R73.03 Prediabetes; Z86.39 Personal history of other endocrine, nutritional and metabolic disease

== ENCOUNTER 2025-04-19 08:44 | Observation (INO) | payer MEDICARE, MEDICAID ==
[~2025-04-19] VITALS: Ht 162.6 cm; Wt 49.3 kg
[~2025-04-19 08:44] MED LIST changes: -ALBU8.5H INH; +ALBU8.5H PO; +METH-1100 PO; -METH-855 PO; -POTA10CA60 PO; +POTA10CA70 PO; -PRAV10TA3 PO; +PRAV10TA43 PO; -PRAV20TA2 PO; +PRAV20TA78 PO
[2025-04-19 09:21] LABS: BASO # 0.0 10^3/uL (0.0-0.2); BASO % 0.2 % (0.0-1.0); EOS # 0.1 10^3/uL (0.0-0.5); EOS % 0.5 % (0.0-3.0); LYMPH # 1.5 10^3/uL (1.5-5.0); LYMPH % 14.6 % (24.0-44.0); MONO # 0.6 10^3/uL (0.0-0.8); MONO % 5.8 % (2.0-8.0); NEUTROPHILS # 7.8 10^3/uL (1.5-8.5); NEUTROPHILS % 78.5 % (36.0-66.0); PLATELET COUNT, AUTOMATED 188 10^3/uL (150-450)
[2025-04-19] MEDS: NS 500 ML IV ONE (09:35)
[2025-04-19 09:52] LABS: CALCIUM LEVEL 8.7 MG/DL (8.3-10.6); CARBON DIOXIDE LEVEL 27.0 MMOL/L (20-31); CHLORIDE LEVEL 104.0 MMOL/L (98-107); CREATININE FOR GFR 0.92 MG/DL (0.70-1.30); GLOMERULAR FILTRATION RATE 86.2 (>42); POTASSIUM SERUM 4.3 MMOL/L (3.5-5.1); SODIUM LEVEL 143.0 MMOL/L (136-145)
[2025-04-19 10:12] LABS: INR 1.15
[2025-04-19 10:29] LABS: ALT/SGPT 19.0 U/L (7.0-40); AST/SGOT 21.0 U/L (<34)
[2025-04-19] MEDS ORDERED: ALBUTEROL 90 MCG/ACT 8 GM HFA INHALER INH PRN (14:05)
[2025-04-19] MEDS ORDERED: OMEP40CA5 PO (14:12)
[2025-04-19] MEDS ORDERED: CYAN100017 INJ (14:12)
[2025-04-19] MEDS: PANTOPRAZOLE 40MG VIAL IV ONE ×2 (14:13→15:21)
[2025-04-19] MEDS ORDERED: HOME MED LIST COMPLETE! XX SCH (14:15)
[2025-04-19] MEDS ORDERED: PILL CUTTER 1 EACH XX PRN (14:50)
[2025-04-19] MEDS: SUCRALFATE SUSP 1GM/10ML UD PO SCH (18:55)
[2025-04-19 19:10] LABS: PLATELET COUNT, AUTOMATED 157 10^3/uL (150-450)
[2025-04-19 20:00] VITALS: BP 122/70; TEMP 98.6; O2SAT 94
[2025-04-19] MEDS: VITAMIN D 1,000 INTERNATIONAL UNITS TABLET PO SCH (20:35)
[2025-04-19] MEDS: FINASTERIDE 5 MG TAB PO SCH (20:35)
[2025-04-19] MEDS: PRAVASTATIN 20 MG TAB PO SCH (20:35)
[2025-04-19] MEDS: PANTOPRAZOLE 40MG VIAL IV SCH (20:47)
[2025-04-19] MEDS: FLUTICASONE PROPIONATE 0.05% NASAL SPRAY 16 GM NARES SCH (21:59)
[2025-04-20 00:49] VITALS: BP 122/59; TEMP 97.9; O2SAT 96
[2025-04-20 04:01] VITALS: BP 110/59; TEMP 98.6; O2SAT 95
[2025-04-20 06:49] LABS: PLATELET COUNT, AUTOMATED 171 10^3/uL (150-450)
[2025-04-20 07:35] LABS: CALCIUM LEVEL 7.9 MG/DL (8.3-10.6); CARBON DIOXIDE LEVEL 27.0 MMOL/L (20-31); CHLORIDE LEVEL 107.0 MMOL/L (98-107); CREATININE FOR GFR 0.88 MG/DL (0.70-1.30); GLOMERULAR FILTRATION RATE 89.1 (>42); POTASSIUM SERUM 3.8 MMOL/L (3.5-5.1); SODIUM LEVEL 139.0 MMOL/L (136-145)
[2025-04-20] MEDS: DOCUSATE SODIUM 100 MG CAPSULE PO SCH (08:00)
[2025-04-20] MEDS: MIRALAX *UNIT DOSE* 17 GM PACKET PO SCH (08:01)
[2025-04-20 08:37] LABS: IRON (FE) 76.0 UG/DL (65-175); PERCENT SATURATION 33.0 % (19.7-50.0)
[2025-04-20 08:39] LABS: VITAMIN B12 LEVEL 545.0 PG/ML (211-911)
[2025-04-20 11:36] VITALS: BP 117/64; TEMP 97.7; O2SAT 98
[2025-04-20 19:49] VITALS: BP 140/74; TEMP 97.5; O2SAT 95
[2025-04-21 04:05] VITALS: BP 133/70; TEMP 97.3; O2SAT 98
[2025-04-21 09:49] LABS: PLATELET COUNT, AUTOMATED 162 10^3/uL (150-450)
[2025-04-21 11:53] VITALS: BP 110/65; TEMP 97.3; O2SAT 98
[2025-04-21 20:00] VITALS: BP 139/74; TEMP 97.2; O2SAT 98
[2025-04-22 04:00] VITALS: BP 119/56; TEMP 97.2; O2SAT 95
[2025-04-22 06:26] LABS: PLATELET COUNT, AUTOMATED 160 10^3/uL (150-450)
[2025-04-22 07:00] LABS: CALCIUM LEVEL 8.1 MG/DL (8.3-10.6); CARBON DIOXIDE LEVEL 28.0 MMOL/L (20-31); CHLORIDE LEVEL 106.0 MMOL/L (98-107); CREATININE FOR GFR 0.86 MG/DL (0.70-1.30); GLOMERULAR FILTRATION RATE 89.7 (>42); POTASSIUM SERUM 3.8 MMOL/L (3.5-5.1); SODIUM LEVEL 141.0 MMOL/L (136-145)
[2025-04-22] MEDS ORDERED: SUCR1SS PO (08:27)
[2025-04-22] MEDS ORDERED: PROT1TAB2 PO (08:27)
[2025-04-22] MEDS: FERRIC CARBOXYMALTOSE INJ 750 MG, VIAL MATE ADAPTER 1 EACH in NS 100 ML IV ONE (10:12)
[2025-04-22 11:59] VITALS: BP 145/74; TEMP 97.3; O2SAT 96
== END 2025-04-22 12:12 | disposition home or self-care (01) ==
LOC: M ED 08:44 → M ED INP 08:45 → M MSPAV 04-20 00:47
PROVIDERS: ADMIT Internal Medicine; ATTEND Internal Medicine
DX: K29.50 Unspecified chronic gastritis without bleeding (principal); R19.5 Other fecal abnormalities; R42 Dizziness and giddiness; Q85.00 Neurofibromatosis, unspecified; J44.9 Chronic obstructive pulmonary disease, unspecified; E78.5 Hyperlipidemia, unspecified; N40.0 Benign prostatic hyperplasia without lower urinary tract symptoms; J30.1 Allergic rhinitis due to pollen; Z87.891 Personal history of nicotine dependence; Z79.899 Other long term (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
CPT/HCPCS: 36415; 70450; 74174; 80048; 80076; 82607; 82728; 82746; 83550; 83690; 84238; 85025; 85027; 85610; 86850; 86900; 86901; 93005; 96374; 96375; 96376; 99285; G0378; J1439; J2470

== ENCOUNTER → 2025-06-06 | Outpatient (CLI) | payer MEDICARE, MEDICAID ==
[~2025-06-06] MED LIST changes: +CYAN100017 INJ; +OMEP40CA5 PO; +PROT1TAB2 PO
== END ==
LOC: M LAB 12:14
PROVIDERS: ATTEND Urology
DX: N40.0 Benign prostatic hyperplasia without lower urinary tract symptoms (principal); Z12.5 Encounter for screening for malignant neoplasm of prostate
CPT/HCPCS: 36415; G0103